=== PATIENT | male | born 1960 | race Caucasian/White ===

== ENCOUNTER 2021-06-10 13:10 | Inpatient (IN) | payer SELFPAY ==
[2021-06-10] VITALS (20 sets, daily range): BP systolic 116–169; BP diastolic 75–93; PULSE 76–118; RESP 16–28; TEMP 35.9–38; O2SAT 88–97; BMI 15.8
--- NOTE | ~2021-06-10 | XR_ITS ---
XR chest 1V portable 06/10/2021 13:36 Indication: Shortness of breath for 3 days. Procedure: AP portable chest Comparison: No prior studies for comparison. Findings: There is bibasilar airspace disease, left greater than right. There is emphysema. No pneumo thorax. Heart size normal. No significant effusion. Impression: 1: Bibasilar airspace disease, consistent with pneumonia. Reviewed, dictated and finalized at location A. Impression: 1: Bibasilar airspace disease, consistent with pneumonia.
--- NOTE | ~2021-06-10 | CT_ITS ---
EXAMINATION: CTA chest PE protocol DATE: 06/10/2021 15:27 INDICATION: Shortness of breath TECHNIQUE: Computed tomography angiography (CTA) of the chest was performed with 100 mL Omnipaque-350 intravenous contrast timed to evaluate the pulmonary arteries. Coronal maximum intensity projection 3D-reconstructions were created by the technologist. The dose-length product (DLP) was 168.60 mGy-cm. Automated exposure control and iterative reconstruction technique were employed. COMPARISON: None. FINDINGS: The pulmonary arteries are well-opacified. No pulmonary embolism is identified. There is s evere emphysema. There are patchy airspace opacities in the lower lobes, left greater than right and to a lesser extent in the upper lobes. There is no pleural effusion or pneumothorax. There is mild bi lateral hilar lymphadenopathy. There is mild thoracic spondylosis. IMPRESSION: 1. No pulmonary embolus identified. 2. Severe emphysema. 3. Patchy airspace opacities with a lower lobe predominance, likely multifocal pneumonia. 4. Mild hilar lymphadenopathy, likely reactive. Reviewed, dictated and finalized at location B.
--- NOTE | 2021-06-10 13:22 | ED.SOB ---
HPI - SOB/Dyspnea General Chief Complaint: Shortness of Breath/Dyspnea Stated Complaint: SOB/Cough/Fever Time Seen by Provider: 06/10/21 13:22 Source: patient History of Present Illness HPI Narrative: 60-year-old male, alcoholic and smoker who quit 3 weeks ago presents to the ER with a 3 day history of -- recurrent cough mucoid / mucopurulent sputum -- worsening shortness of breath -- low-grade fevers the patient took Mucinex without any benefit. MD elicited complaint: shortness of breath Pertinent past history: COPD Onset (ago): day(s) ( Started 3 days ago) Timing: constant Relieving factors: nothing Known history of: COPD Associated symptoms: fever, cough and sputum production Treatment prior to arrival: none Related Data Home oxygen amount: none Home Medications Medication Instructions Recorded Confirmed No Home Medications 06/10/21 06/10/21 Allergies Allergy/AdvReac Type Severity Reaction Status Date / Time No Known Allergies Allergy Verified 06/10/21 14:10 Review of Systems Review of Systems: All systems reviewed & are unremarkable except as noted in HPI and below Constitutional: Constitutional: Reports as per HPI, Reports no additional constitutional complaints and Reports fever(s) Eyes: Eyes: Reports as per HPI and Reports no additional eye complaints ENT: Reports system reviewed and no additional complaints, except as documented and Reports as per HPI Cardiovascular: Cardiovascular: Reports as per HPI and Reports no additional cardiovascular complaints Respiratory: Respiratory: Reports as per HPI, Reports no additional respiratory complaints, Reports cough and Reports dyspnea Gastrointestinal: Gastrointestinal: Reports as per HPI and Reports no additional gastrointestinal complaints Genitourinary: Genitourinary: Reports no additional male genitourinary complaints and Reports as per HPI Musculoskeletal: Musculoskeletal: Reports no additional musculoskeletal complaints and Reports as per HPI Integumentary/Breasts: Skin/Breast: Reports system reviewed and no additional complaints, except as docu Neurologic: Reports system reviewed and no additional complaints, except as documented and Reports as per HPI Psychiatric: Psychiatric: Reports no additional psychiatric complaints Endocrine: Endocrine: Reports no additional endocrine complaints and Reports as per HPI Hematologic/Lymphatic: Hematologic/Lymphatic: Reports no additional hematologic/lymphatic complaints and Reports as per HPI Allergic/Immunologic: Allergic/Immunologic: Reports no additional allergic/immunologic complaints and Reports as per HPI [facility] Past Medical History Medical History COPD (chronic obstructive pulmonary disease) Social History Social History (Updated 06/10/21 @ 13:35 by Bobby Greer MD) Smoking packs per day: 3 Smoking cigarettes per day: 60.0 Years smoked: 41 Smoking pack-years: 123.00 Smoking status: Former smoker Tobacco type: cigarettes Alcohol intake: former Drinks per week: 28 Alcohol use details: 4 beers a day. quit 3 weeks ago Substance use: never Exam Const: General: no acute distress and alert Orientation/consciousness: patient oriented x3 Limitations: altered mental status HENMT: Head: normal to inspection Eyes: Conjunctivae: conjunctivae normal Pupils: Equal, round and reactive pupils present EOM: EOMs intact bilaterally Neck: Neck: normal visual inspection, no lymphadenopathy and no meningeal signs Chest: Chest palpation & inspection: normal inspection of the chest Resp: Effort & Inspection: labored and uses accessory muscles Auscultation: wheezes and diminished lung sounds Cardio: Rate: regular rate Rhythm: regular rhythm GI: GI Palp: Yes Soft to palpation : Testes: Testes normal Back/Spine/Pelvis: Back: no CVA tenderness Skin: General skin exam: normal color Rashes: no rashes Neuro:
--- NOTE | 2021-06-10 13:27 | ECG_ITS ---
Measurements Intervals Cullen Rate: 116 P: 100 KS: 120 QRS: 95 QRSD: 85 T: 94 QT: 296 QTc: 412 Interpretive Statements SINUS TACHYCARDIA RIGHT ATRIAL ENLARGEMENT [0.3mV P-WAVE] POSSIBLE LEFT ATRIAL ENLARGEMENT [-0.1mV P-WAVE IN V1/V2] BORDERLINE RIGHT AXIS DEVIATION [QRS AXIS > 90] POSSIBLE ANTERIOR INFARCTION, AGE INDETERMINATE ABNORMAL ECG NO PREVIOUS ECG AVAILABLE FOR COMPARISON Electronically Signed On 06-10-2021 13:50:49 CDT by Maximilian Sepulveda M.D.
[2021-06-10] MEDS: IPRATROPIUM 0.5 MG/ALBUTEROL SULFATE 2.5 MG AMPUL.NEB 3 ML INHALATION ×3 (13:37→23:33)
[2021-06-10 13:42] LABS: Base Excess ABG 1.2 mmol/L (0-2); Device ROOM AIR; HCO3 ABG 23.6 mmol/L (23-29); Modified Allen's Test Pass; Oxygen Content ABG 19.6 %vol (16.0-22.0); Oxygen Saturation ABG 87.2 % (95-97); Oxyhemoglobin 83.9 % (94-100); PO2 ABG 48.5 mmHg (80-90); Site Drawn RIGHT RADIAL; Total Hemoglobin 16.7 g/dL (12.0-18.0); pH ABG 7.49 (7.35-7.45)
[2021-06-10 14:02] LABS: Basophils Absolute Auto 0.04 K/mm3 (0.00-0.10); Basophils Percent Auto 0.4 % (0.0-1.0); Eosinophils Percent Auto 1.9 % (1.0-6.0); Hematocrit 47.9 % (40.0-54.0); Hemoglobin 16.1 g/dL (14.0-18.0); Immature Granulocyte Absolute 0.04 K/mm3 (0.00-0.00); Immature Granulocyte Percent A 0.4 % (0.0-0.0); Immature Platelet Fraction Pct 3.3 % (1.0-7.0); Lymphocytes Absolute Auto 1.99 K/mm3 (1.10-4.50); Lymphocytes Percent Auto 18.9 % (18.0-42.0); Mean Corpuscular HGB Conc 33.6 g/dL (32.0-36.0); Mean Corpuscular Hemoglobin 31.1 pg (27.0-31.0); Mean Corpuscular Volume 92.5 fL (78.0-102.0); Mean Platelet Volume 11.1 fl (8.7-11.0); Monocytes Percent Auto 9.5 % (2.0-11.0); Neutrophils Absolute Auto 7.2 K/mm3 (1.7-7.2); Neutrophils Percent Auto 68.9 % (50.0-70.0); Platelet Count Result 112 K/mm3 (150-420); Red Blood Count 5.18 M/mm3 (4.70-6.10); Red Cell Distribution Width 13.8 % (11.6-14.4); White Blood Count 10.5 K/mm3 (4.8-10.8)
[2021-06-10] MEDS: methylPREDNISolone SOD SUCC 125 MG VIAL IV PUSH (14:10)
[2021-06-10 14:11] LABS: Partial Thromboplastin Time 33.9 SEC (23.90-30.70)
--- NOTE | 2021-06-10 14:11 | PC.NURSE ---
Ddimer 0.83, reported to Dr Greer
[2021-06-10 14:12] LABS: D Dimer 0.83 mg/L (0.19-0.50)
[2021-06-10 14:16] LABS: SARS-CoV-2 Ag Negative (Negative)
[2021-06-10 14:17] LABS: Lactic Acid Reflex 1.4 mmol/L (0.4-2.0)
[2021-06-10 14:18] LABS: Influenza Control Valid (Valid)
[2021-06-10 14:20] LABS: Troponin I 10.3 ng/L (0.00-60.4)
[2021-06-10 14:20] LABS: Alanine Aminotransferase 16 U/L (16-63); Albumin Level 3.2 g/dL (3.4-5.0); Alkaline Phosphatase 62 U/L (46-116); Anion Gap 10 mmol/L (8-16); Aspartate Amino Transferase 20 U/L (15-37); Bilirubin,Total 0.7 mg/dL (0.00-1.00); Blood Urea Nitrogen 8 mg/dL (7-18); Calcium 8.8 mg/dL (8.5-10.1); Carbon Dioxide 25 mmol/L (21-32); Chloride 91 mmol/L (98-108); Estimated CRCL calculation 66 ml/min; Estimated Glomerular Filt Rate > 60; Glucose 110 mg/dL (70-99); NT Pro B Type Natriuretic Pept 381 pg/mL (0-125); Osmolality Calculated 261 mOsm/kg (285-295); Potassium 3.7 mmol/L (3.5-5.1); Sodium 126 mmol/L (136-145); Total Protein 9.4 g/dL (6.4-8.2)
[2021-06-10] MEDS: SODIUM CHLORIDE 0.9% IV 500 ML IV CONT (15:32)
--- NOTE | 2021-06-10 17:49 | ADMGEN ---
This patient, Marin Singletary, was admitted to 2nd Floor Room 205-2. Patient/family oriented to hospital policies and general routines including ID bracelet, bed and alarms, visiting hours, pain management, procedures, bathroom and other care routines, personal items, smoking policy, room service/diet, and visiting hours. Information on how to activate the Rapid Response Team has been discussed. Patient/Family are encouraged to report perceived risks to care and to ask questions if they do not understand what they are told or what they should do.
[2021-06-10] MEDS: ACETAMINOPHEN 325 MG TABLET 650 MG PO (18:23)
[2021-06-10] MEDS: methylPREDNISolone SOD SUCC 40 MG VIAL IV PUSH (22:05)
[2021-06-11] VITALS (7 sets, daily range): BP systolic 112; BP diastolic 74; PULSE 71–84; RESP 16–22; TEMP 36.2; O2SAT 90–100
[2021-06-11 05:00] LABS: Basophils Absolute Auto 0.02 K/mm3 (0.00-0.10); Basophils Percent Auto 0.4 % (0.0-1.0); Hematocrit 47.6 % (40.0-54.0); Hemoglobin 15.4 g/dL (14.0-18.0); Immature Granulocyte Absolute 0.03 K/mm3 (0.00-0.00); Immature Granulocyte Percent A 0.7 % (0.0-0.0); Lymphocytes Absolute Auto 1.02 K/mm3 (1.10-4.50); Lymphocytes Percent Auto 22.2 % (18.0-42.0); Mean Corpuscular HGB Conc 32.4 g/dL (32.0-36.0); Mean Corpuscular Hemoglobin 30.6 pg (27.0-31.0); Mean Corpuscular Volume 94.4 fL (78.0-102.0); Mean Platelet Volume 11.2 fl (8.7-11.0); Monocytes Absolute Auto 0.21 K/mm3 (0.10-0.90); Monocytes Percent Auto 4.6 % (2.0-11.0); Neutrophils Absolute Auto 3.3 K/mm3 (1.7-7.2); Neutrophils Percent Auto 72.1 % (50.0-70.0); Platelet Count Result 101 K/mm3 (150-420); Red Blood Count 5.04 M/mm3 (4.70-6.10); Red Cell Distribution Width 13.9 % (11.6-14.4); White Blood Count 4.6 K/mm3 (4.8-10.8)
[2021-06-11] MEDS: methylPREDNISolone SOD SUCC 40 MG VIAL IV PUSH ×2 (05:02→12:22)
[2021-06-11 05:08] LABS: Anion Gap 7 mmol/L (8-16); Blood Urea Nitrogen 13 mg/dL (7-18); Calcium 8.9 mg/dL (8.5-10.1); Carbon Dioxide 28 mmol/L (21-32); Chloride 97 mmol/L (98-108); Estimated CRCL calculation 53 ml/min; Estimated Glomerular Filt Rate > 60; Glucose 155 mg/dL (70-99); Osmolality Calculated 277 mOsm/kg (285-295); Potassium 4.2 mmol/L (3.5-5.1); Sodium 132 mmol/L (136-145)
[2021-06-11] MEDS: IPRATROPIUM 0.5 MG/ALBUTEROL SULFATE 2.5 MG AMPUL.NEB 3 ML INHALATION ×2 (05:29→12:30)
[2021-06-11] MEDS: ENOXAPARIN 40 MG/0.4 ML SYRINGE SUB-Q (08:46)
--- NOTE | 2021-06-11 12:07 | PC.NURSE ---
oxygen removed at this time
--- NOTE | 2021-06-11 12:28 | PM.SD2 ---
Same Day Admit/Disch: HPI History of Present Illness Chief complaint: COPD PNEUMONIA Narrative: Marin Singletary is a 60 year old male that presented to our emergency department with complaints of shortness of breath. Patient denies any past medical history. Patient imaging does indicate COPD and he is a smoker. According to patient he has been short of breath at rest and on exertion since Tuesday with no relief. Patient notes that he does have a chronic cough but it has been uncontrollable and he has also been experiencing a fever. 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 WBCs 10.5, hemoglobin 16.1, hematocrit 47.9, platelets 112, D-dimer 0.83, ABG pH 7.49, CO2 32, O2 48.5, bicarb 23.6 sodium 126, potassium 3.7, BUN 8, creatinine 0.98, glucose 110, lactic acid 1.4, liver function test within normal limit, troponin 10.3, influenza and Covid negative, CTA does not indicate PE does indicate severe emphysema with pneumonia, EKG sinus tach with a heart rate of 116 .patient patient notes that he is ready for discharge, his breathing has greatly improved. He was discharged home with antibiotics for pneumonia and treatment of COPD which is inhalers with nebulizers and steroid use. The patient denies CP, palpitation, extremity numbness, lightheadedness, dizziness, constipation, diarrhea, chills, or fever. Patient get insurance he will need to complete a home O2 evaluation. [facility] Past Medical History Medical History COPD (chronic obstructive pulmonary disease) Family History Family History (Updated 06/10/21 @ 18:03 by Kinza Stafford RN) Father Lung cancer Sibling Lung cancer Social History Social History (Updated 06/10/21 @ 13:35 by Bobby Greer MD) Smoking packs per day: 3 Smoking cigarettes per day: 60.0 Years smoked: 40 Smoking pack-years: 120.00 Smoking status: Former smoker Tobacco type: cigarettes Additional smoking assessment comments: Quit x3 weeks ago 05/20/2021 Alcohol intake: never Drinks per week: 28 Alcohol use details: 4 beers a day. quit 3 weeks ago Substance use: never Spiritual care concerns: No Same Day Admit/Disch: Med Pre-admit Medications Home Medications Medication Instructions Recorded Confirmed Type No Home Medications 06/10/21 06/10/21 History nebulizers #1 ea 06/11/21 Rx Exam Narrative: GENERAL: Frail, in no apparent distress. HEAD: normocephalic, atraumatic. EYES: PERRL. Sclera clear/white. Vision is grossly intact. EARS: External ears normal, auditory canals clear and without drainage, TMs normal without perforation. Hearing grossly intact. NOSE: External nose normal with no obvious nasal discharge, nares without redness, no rhinorrhea. THROAT: Mucous membranes moist, posterior pharynx clear. NECK: Neck supple, non-tender without lymphadenopathy, masses or thyromegaly. CARDIOVASCULAR: Regular rate and rhythm without murmurs, gallops, or rubs. RESPIRATORY: Diminished breath sounds throughout, use of accessory muscles especially while eating with barrel chest GASTROINTESTINAL: Abdomen soft, non-tender, nondistended. Bowel sounds are active. No hepato-splenomegaly, or palpable masses. No guarding. SKIN: warm, intact with no suspicious lesions or rash, good texture and turgor. NEURO: awake, alert, and oriented to person, place and time. There were no obvious focal neurologic abnormalities. Steady gait EXTREMITIES: Normal range of motion. No edema. No calf tenderness. Negative Homans sign bilaterally. BACK: Nontender without deformity or crepitance. No flank tenderness. DS: Data Data Completed and Pending Labs on day of discharge: Labs from last 24 hours 06/11/21 06/11/21 06/10/21 04:47 04:47 13:57 WBC 4.6 L RBC 5.04 Hgb 15.4 Hct 47.6 MCV 94.4 MCH 30.6 MCHC 32.4 RDW 13.9 Plt Co
[2021-06-11] MEDS: ALBUTEROL SULFATE (*SP) INHALER 2 PUFF INHALATION (12:55)
[2021-06-11] MEDS: BUDESONIDE/FORMOTEROL 80/4.5 MCG 6.9 GM INHALER (*SP) 2 PUFF INHALATION (13:18)
--- NOTE | 2021-06-11 15:50 | PC.NURSE ---
1540. all dc orders went over. how to use nebs. prednisone tapering. inhaler use. making f/u appointments. cont to not smoke. voices an understanding. dc to nephew's car.
--- NOTE | 2021-06-16 10:27 | PC.NURSE ---
Unable to contact for discharge call back.
== END 2021-06-11 15:40 | disposition home or self-care (01) | DRG 140 ==
LOC: CHSED 16:15 → CHS2ND 17:03
PROVIDERS: Admitting Provider Internal Medicine; Emergency Provider Internal Medicine Critical Care Medicine; PCP Family Medicine; Visit Provider Internal Medicine
DX: J44.0 Chronic obstructive pulmonary disease with (acute) lower respiratory infection (principal); J18.9 Pneumonia, unspecified organism; J96.01 Acute respiratory failure with hypoxia; E87.1 Hypo-osmolality and hyponatremia; R79.1 Abnormal coagulation profile; Z20.822 Contact with and (suspected) exposure to COVID-19; Z87.891 Personal history of nicotine dependence
CPT/HCPCS: 36415; 36600; 71045; 71275; 80048; 80053; 82805; 83605; 83880; 84484; 85025; 85055; 85380; 85610; 85730; 87040; 87426; 87804; 93005; 94640; 96361; 96365; 96367; 96375; 99285; A9270; C9803; J0456; J0696; J1650; J2920; J2930; J7040; Q9967

== ENCOUNTER 2021-08-04 15:34 | Emergency (ER) | payer OTHER, SELFPAY ==
--- NOTE | ~2021-08-04 | CT_ITS ---
EXAMINATION: CT abdomen pelvis w con DATE: 08/04/2021 16:55 INDICATION: RLQ pain today TECHNIQUE: Computed tomography (CT) of the abdomen and pelvis was performed with 100 mL Omnipaque-300 intravenous contrast. Automated exposure control and iterative reconstruction technique were employe d. The dose-length product was 178.31 mGy-cm. COMPARISON: CTPA 06/10/2021 FINDINGS: Lower thorax: Emphysematous changes. Moderate coronary artery calcification. Liver: Scattered hypodensities, too small to characterize but most likely represent cysts. Biliary/Gallbladder: Gallbladder is collapsed. No bile duct dilation. Pancreas: No mass or duct dilation. Spleen: Normal. Adrenals:No mass. Kidneys: No mass, stone, or hydronephrosis. GI tract: No small or large bowel dilation. The appendix is dilated to 8 mm, with wall hyperemia and surrounding inflammation/fluid. Transverse colon dips low into the pelvis with a portion herniated in to the left inguinal canal. Rectal wall thickening, with suggestion of shouldering at the proximal ma rgin. Mesentery/Peritoneum: No ascites, mass, or free air. Retroperitoneum: No mass. Abdominal atherosclerosis. Pelvis: Marked bladder distention likely due to outlet obstruction from prostatomegaly. Soft Tissues: Large, inflammatory/edematous left internal hernia containing a nondilated loop of briseno sverse colon. Bones: No acute osseous finding. IMPRESSION: Acute appendicitis. Evaluation for early abscess formation or perforation is limited by the paucity o f abdominal fat. Rectal wall thickening, recommend nonemergent GI referral to evaluate for proctitis and exclude a mass. Large left inguinal hernia that contains nondilated large bowel. Reviewed, dictated and finalized at location K. IMPRESSION: Acute appendicitis. Evaluation for early abscess formation or perforation is li mited by the paucity of abdominal fat. Rectal wall thickening, recommend noneme rgent GI referral to evaluate for proctitis and exclude a mass. Large left ingu inal hernia that contains nondilated large bowel.
[2021-08-04 15:45] VITALS: BP 178/95; PULSE 85; RESP 18; TEMP 36.8; O2SAT 95
--- NOTE | 2021-08-04 15:51 | ED.ABDPAIN ---
HPI - Abdominal Pain General Chief Complaint: Abdominal Pain Stated Complaint: L side pain Time Seen by Provider: 08/04/21 15:55 Source: patient and RN notes reviewed Mode of arrival: ambulatory Limitations: no limitations History of Present Illness MD elicited complaint: abdominal pain Pertinent past history: none Onset (ago): hour(s) (6) Pain Consistency: constant Location: RLQ Severity: severe Quality: stabbing and sharp Radiation: none Migration to: no migration Exacerbating factors: nothing Relieving factors: nothing Associated symptoms: denies other symptoms Related Data Allergies Allergy/AdvReac Type Severity Reaction Status Date / Time No Known Allergies Allergy Verified 08/04/21 15:51 Review of Systems Review of Systems: All systems reviewed & are unremarkable except as noted in HPI and below Constitutional: Constitutional: Denies chills and Denies fever(s) Cardiovascular: Cardiovascular: Denies chest pain Respiratory: Respiratory: Denies dyspnea Gastrointestinal: Gastrointestinal: Denies diarrhea, Denies nausea and Denies vomiting Genitourinary: Genitourinary: Denies dysuria PMFSH Past Medical History Medical History COPD (chronic obstructive pulmonary disease) Family History Family History Father Lung cancer Sibling Lung cancer Social History Social History Years smoked: 40 Smoking status: Current every day smoker Tobacco type: cigarettes Second hand tobacco smoke exposure: No Additional smoking assessment comments: smokes 2 cigs per week Alcohol intake: current Drinks per week: 2 Alcohol use details: 4 beers a day. quit 3 weeks ago Substance use: never Spiritual care concerns: No Exam Const: General: healthy appearing, no acute distress and alert Nutritional Appearance: well nourished and thin Orientation/consciousness: patient oriented x3 HENMT: Head: normal to inspection Ears: external ears normal Eyes: Conjunctivae: conjunctivae normal Pupils: Equal, round and reactive pupils present EOM: EOMs intact bilaterally Neck: Neck: normal visual inspection Resp: Effort & Inspection: normal respiratory effort Auscultation: clear to auscultation bilaterally Cardio: Rate: regular rate Rhythm: regular rhythm GI: GI Palp: Yes Soft to palpation, Yes Tenderness to palpation present (GI) (moderate RLQ), Yes Guarding due to palpation present (GI) (moderate RLQ) and No Rebound tenderness present Auscultation: normal bowel sounds Back/Spine/Pelvis: Back: no CVA tenderness Cervical Spine: cervical ROM normal Thoracic/Lumbar Spine: thoraco-lumbar ROM normal Skin: General skin exam: normal color Rashes: no rashes Neuro: General: patient oriented x3, moves all extremities, no meningeal signs, no focal motor deficits and CN's II-XI intact bilaterally Speech: normal speech Gait exam (Neuro): Normal gait present Extrem: General: normal to inspection and no clubbing, cyanosis or edema Psych: Appearance: grossly normal and well kempt Mental Status: mental status grossly normal Affect: normal affect Attitude: cooperative Thought content: Yes Normal thought content present Course Vital Signs Vital signs: Vital Signs Temperature 36.8 C 08/04/21 15:45 Pulse Rate 85 08/04/21 15:45 Respiratory Rate 18 08/04/21 15:45 Blood Pressure 178/95 H 08/04/21 15:45 Pulse Oximetry 95 08/04/21 15:45 Temperature 36.8 C 08/04/21 18:28 Pulse Rate 82 08/04/21 18:28 Respiratory Rate 18 08/04/21 18:28 Blood Pressure 155/84 H 08/04/21 18:28 Pulse Oximetry 97 08/04/21 18:28 MDM - Abdominal Pain Lab Data Result diagrams: 08/04/21 16:07 08/04/21 16:07 Labs: Lab Results 08/04/21 08/04/21 08/04/21 Range/Units 16:07 16:07 16:07 WBC 9.3 (4.8-10.8) K
[2021-08-04 16:14] LABS: Basophils Absolute Auto 0.05 K/mm3 (0.00-0.10); Basophils Percent Auto 0.5 % (0.0-1.0); Eosinophils Absolute Auto 0.08 K/mm3 (0.02-0.50); Eosinophils Percent Auto 0.9 % (1.0-6.0); Immature Granulocyte Absolute 0.02 K/mm3 (0.00-0.00); Immature Granulocyte Percent A 0.2 % (0.0-0.0); Lymphocytes Absolute Auto 2.25 K/mm3 (1.10-4.50); Lymphocytes Percent Auto 24.3 % (18.0-42.0); Mean Corpuscular HGB Conc 34.1 g/dL (32.0-36.0); Mean Corpuscular Hemoglobin 31.3 pg (27.0-31.0); Mean Corpuscular Volume 91.9 fL (78.0-102.0); Mean Platelet Volume 10.6 fl (8.7-11.0); Monocytes Absolute Auto 0.74 K/mm3 (0.10-0.90); Neutrophils Absolute Auto 6.1 K/mm3 (1.7-7.2); Neutrophils Percent Auto 66.1 % (50.0-70.0); Platelet Count Result 155 K/mm3 (150-420); Red Blood Count 4.79 M/mm3 (4.70-6.10); Red Cell Distribution Width 14.7 % (11.6-14.4); White Blood Count 9.3 K/mm3 (4.8-10.8)
[2021-08-04 16:26] LABS: Alanine Aminotransferase 18 U/L (16-63); Albumin Level 3.4 g/dL (3.4-5.0); Alkaline Phosphatase 100 U/L (46-116); Aspartate Amino Transferase 24 U/L (15-37); Bilirubin,Total 0.3 mg/dL (0.00-1.00); Blood Urea Nitrogen 8 mg/dL (7-18); Carbon Dioxide 25 mmol/L (21-32); Estimated CRCL calculation 63 ml/min; Estimated Glomerular Filt Rate > 60; Glucose 97 mg/dL (70-99); Total Protein 7.2 g/dL (6.4-8.2)
[2021-08-04 16:31] LABS: Lactic Acid Reflex 0.5 mmol/L (0.4-2.0)
[2021-08-04 16:40] LABS: CRP 0.6 mg/dL (0.0-0.9)
[2021-08-04 16:57] LABS: Anion Gap 9 mmol/L (8-16); Chloride 99 mmol/L (98-108); Osmolality Calculated 274 mOsm/kg (285-295); Potassium 3.5 mmol/L (3.5-5.1); Sodium 133 mmol/L (136-145)
[2021-08-04 17:00] VITALS: BP 161/70; PULSE 79; RESP 16; TEMP 36.9; O2SAT 97
[2021-08-04 18:28] VITALS: BP 155/84; PULSE 82; RESP 18; TEMP 36.8; O2SAT 97
== END 2021-08-04 18:55 | disposition short-term general hospital (02) ==
PROVIDERS: Emergency Provider Emergency Medicine; PCP Physician Assistant
DX: K35.80 Unspecified acute appendicitis (principal)
CPT/HCPCS: 74177; 80053; 83605; 85025; 86140; 96365; 99285; J2543; Q9967

== ENCOUNTER 2021-08-04 22:30 | Observation (INO) | payer OTHER, SELFPAY ==
[2021-08-04 21:56] VITALS: BP 128/82; PULSE 85; RESP 16; TEMP 36.9; O2SAT 95
[2021-08-04] MEDS: MORPHINE SULFATE (*CRX) 4 MG/ML INJ IV PUSH (23:31)
[2021-08-04] MEDS: LACTATED RINGERS 1,000 ML 150 ML IV CONT (23:32)
[2021-08-05] VITALS (10 sets, daily range): BP systolic 107–170; BP diastolic 71–106; PULSE 66–86; RESP 10–20; TEMP 36.2–36.8; O2SAT 92–100; BMI 16.5
--- NOTE | 2021-08-05 01:08 | ADMGEN ---
1926 This patient, Marin Singletary, was admitted to [facility] Surg Room 329-01. Patient/family oriented to hospital policies and general routines including ID bracelet, bed and alarms, visiting hours, pain management, procedures, bathroom and other care routines, personal items, smoking policy, room service/diet, and visiting hours. Information on how to activate the Rapid Response Team has been discussed. Patient/Family are encouraged to report perceived risks to care and to ask questions if they do not understand what they are told or what they should do.
[2021-08-05] MEDS: LACTATED RINGERS 1,000 ML 150 ML IV CONT (05:43)
[2021-08-05 06:33] LABS: Hematocrit 45.2 % (42.0-52.0); Hemoglobin 14.5 g/dL (14.0-18.0); Mean Corpuscular HGB Conc 32.1 g/dl (32-36); Mean Corpuscular Volume 93.4 fl (80-100); Mean Platelet Volume 10.7 fl (7.4-10.4); Platelet Count Result 145 k/mm3 (150-375); Red Blood Count 4.84 M/mm3 (4.6-6.20); Red Cell Distribution Width 15.6 % (11.5-14.5); White Blood Count 5.1 K/mm3 (4.5-10.0)
[2021-08-05 06:53] LABS: Anion Gap 6 mmol/L (8-16); Blood Urea Nitrogen 6 mg/dL (9-20); Calcium 7.9 mg/dL (8.4-10.2); Carbon Dioxide 25 mmol/L (22-30); Chloride 105 mmol/L (98-107); Estimated Glomerular Filt Rate > 60; Glucose 83 mg/dL (65-110); Potassium 3.6 mmol/L (3.4-5.0); Sodium 136 mmol/L (137-145)
--- NOTE | 2021-08-05 10:28 | WPDANESEPPF ---
Anes - Initial Pre Proc Eval Procedure: Operation Date: 08/05/21 13:30 Proposed Procedures p Laparoscopic Appendectomy, Possible Open - Tyree Long DO <Jorden Suárez MD - Last Filed: 08/08/21 07:55> Date/Time: 08/05/21 10:28 <Jorden Suárez MD - Last Filed: 08/08/21 07:55> Surgeon: Tyree Long DO <Jorden Suárez MD - Last Filed: 08/08/21 07:55> Pre Op Diagnosis: Acute Appendicitis <Jorden Suárez MD - Last Filed: 08/08/21 07:55> Patient Data Age: 60 Gender: M Height: 1.7 m Weight: 47.7 kg <Jorden Suárez MD - Last Filed: 08/08/21 07:55> Last Vital Signs Temp 36.5 C 08/05/21 06:00 Pulse 66 08/05/21 06:00 Resp 16 08/05/21 06:00 BP 111/71 08/05/21 06:00 Pulse Ox 94 08/05/21 06:00 <Jorden Suárez MD - Last Filed: 08/08/21 07:55> Allergies Allergy/AdvReac Type Severity Reaction Status Date / Time No Known Allergies Allergy Verified 08/04/21 15:51 <Jorden Suárez MD - Last Filed: 08/08/21 07:55> Home Medications Medication Instructions Recorded Confirmed Type Spiriva with HandiHaler 1 cap INHALATION DAILY 90 Days #30 06/11/21 08/05/21 Rx inh albuterol sulfate [ProAir HFA] 2 puff INHALATION QID PRN #6.7 g 06/11/21 08/05/21 Rx ipratropium-albuterol 3 ml INHALATION Q4H PRN #30 ml 06/11/21 08/05/21 Rx nebulizers #1 ea 06/11/21 08/04/21 Rx nebulizers #1 ea 06/12/21 08/04/21 Rx hydrocodone-acetaminophen 1 tablet PO Q4H PRN #10 tablet 08/05/21 Rx <Jorden Suárez MD - Last Filed: 08/08/21 07:55> Laboratory Tests 08/05/21 08/05/21 08/05/21 06:06 06:06 06:06 WBC 5.1 K/mm3 K/mm3 (4.5-10.0) RBC 4.84 M/mm3 M/mm3 (4.6-6.20) Hgb 14.5 g/dL g/dL (14.0-18.0) Hct 45.2 % % (42.0-52.0) MCV 93.4 fl fl (80-100) MCH 30.0 pg pg (26-34) MCHC 32.1 g/dl g/dl (32-36) RDW 15.6 % H % (11.5-14.5) Plt Count 145 k/mm3 L k/mm3 (150-375) MPV 10.7 fl H fl (7.4-10.4) Sodium 136 mmol/L L mmol/L (137-145) Potassium 3.6 mmol/L mmol/L (3.4-5.0) Chloride 105 mmol/L mmol/L (98-107) Carbon Dioxide 25 mmol/L mmol/L (22-30) Anion Gap 6 mmol/L L mmol/L (8-16) BUN 6 mg/dL L mg/dL (9-20) Creatinine 0.70 mg/dL mg/dL (0.7-1.3) Estim Creat Clear Calc Not Reportable Estimated GFR > 60 (59 - ) Glucose 83 mg/dL mg/dL (65-110) Calcium 7.9 mg/dL L mg/dL (8.4-10.2) Blood Type B Negative Antibody Screen Negative <Jorden Suárez MD - Last Filed: 08/08/21 07:55> Patient hx anesthesia problems: none <Denver Rodriguez MD - Last Filed: 08/05/21 13:11> Family hx anesthesia problems: none <Denver Rodriguez MD - Last Filed: 08/05/21 13:11> Results Review: All pre-operative results and documents have been reviewed as part of the pre-operative evaluation. <Jorden Suárez MD - Last Filed: 08/08/21 07:55> [facility] Past Medical History Medical History: Medical History COPD (chronic obstructive pulmonary disease) ETOH abuse History of heavy alcohol use. Quit drinking in May of 2021 Reducible left inguinal hernia Smoker <Jorden Suárez MD - Last Filed: 08/08/21 07:55> Surgical History Surgical History: Surgical History History of shoulder surgery 2005 <Jorden Suárez MD - Last Filed: 08/08/21 07:55> Family History Family History: Family History Father Lung cancer Sibling Lung cancer <Jorden Suárez MD - Last Filed: 08/08/21 07:55> Social History Social History: Social History Smoking packs per day: 3 Smoking cigarettes per day: 6
--- NOTE | 2021-08-05 10:46 | PM.IMHP ---
H&P: HPI History of Present Illness Date/Time: 08/05/21 10:46 Chief Complaint: Right lower quadrant abdominal pain Narrative: This is a 60-year-old male with a history of COPD who presented to the [place] ER with complaints of right lower quadrant abdominal pain. He reports first noticing some mild right lower quadrant abdominal pain yesterday around 10:00 a.m.. Throughout the day the pain continued to worsen in severity. No radiating factors or associated symptoms. He reports the pain was aggravated by bending and any movement. Once the pain became severe enough, he decided to drive himself to the ER in [place]. CT scan of the abdomen and pelvis showed acute appendicitis but difficult to evaluate for early abscess or perforation due to the paucity of abdominal fat making the images limited. Also, incidentally noted was rectal wall thickening and a large left inguinal hernia containing nondilated colon. Labs showed a normal white blood cell count. Our service was contacted by the ED physician and the patient was directly admitted to [facility] for surgical evaluation of acute appendicitis. He is now seen on the medical floor. He reports his abdominal pain is controlled when lying still. Denies any nausea, vomiting, fever, or chills. No other complaints at this time. No previous abdominal surgeries. Patient was previously a heavy smoker of about 3 packs per day and quit in May of this year. He reports now only smoking a few cigarettes on occasion. The patient also reports knowing of his left inguinal hernia for well over 10 years. He states this is painful at times, but this resolves when he reduces it at home. This is asymptomatic at this time. Review of Systems Review of Systems: All systems reviewed & are unremarkable except as noted in HPI and below Constitutional: Constitutional: Reports as per HPI, Denies chills, Denies fatigue and Denies fever(s) Eyes: Eyes: Reports no additional eye complaints ENT: Reports system reviewed and no additional complaints, except as documented and Reports Normal hearing present Cardiovascular: Cardiovascular: Reports no additional cardiovascular complaints, Denies chest pain and Denies leg edema Respiratory: Respiratory: Reports no additional respiratory complaints, Denies change in phlegm color, Reports cough (chronic cough, hx COPD, no changes in his cough), Reports dyspnea on exertion (chronic, reports this is typical to his baseline) and Denies wheezing Gastrointestinal: Gastrointestinal: Reports as per HPI, Reports no additional gastrointestinal complaints, Reports abdominal pain (RLQ), Denies bloating, Denies change in bowel habits, Denies change in stool character, Denies diarrhea, Denies nausea and Denies vomiting Comments: Left inguinal hernia that he has had for well over 10 years, reducible. Genitourinary: Genitourinary: Reports no additional male genitourinary complaints, Denies hematuria and Denies dysuria Musculoskeletal: Musculoskeletal: Reports no additional musculoskeletal complaints Neurologic: Reports system reviewed and no additional complaints, except as documented, Denies dizziness, Denies focal weakness, Denies numbness and Denies tingling PMFSH Past Medical History Medical History COPD (chronic obstructive pulmonary disease) ETOH abuse History of heavy alcohol use. Quit drinking in May of 2021 Reducible left inguinal hernia Smoker Surgical History Surgical History History of shoulder surgery 2005 Family History Family History Father Lung cancer Sibling Lung cancer Social History Social History Smoking packs per day: 3 Smoking cigarettes per day: 60.0 Years smoked: 40 Smoking pack-years: 120.00 Smoking status: Current every day smoker Tobacco type: cigare
[2021-08-05] MEDS: LACTATED RINGERS 1,000 ML 30 ML IV CONT (12:55)
--- NOTE | 2021-08-05 12:58 | PM.IMPN ---
Progress Note: A&P Assessment and Plan (1) Acute appendicitis: Code(s): K35.80 - Unspecified acute appendicitis Status: Acute Assessment and Plan: Surgical intervention planned. Continue IV antibiotics Surgery following the patient as well to note, patient does have some rectal thickening on CT scan. This will need to be followed up as an outpatient. (2) COPD (chronic obstructive pulmonary disease): Qualifiers: COPD type: chronic bronchitis Chronic bronchitis type: simple Qualified Code(s): J41.0 - Simple chronic bronchitis Code(s): J44.9 - Chronic obstructive pulmonary disease, unspecified Status: Acute Assessment and Plan: History. No exacerbation Subjective Date/time seen: 08/05/21 12:58 patient is doing well today. Pain is better. Surgical intervention is planned Review of Systems Review of Systems: 10 point ROS negative except as stated in HPI / Subjective Exam Narrative: General: alert and oriented Psych: appropriate mood nad affect Eyes: PERRLA Neck: Trachea midline, no new lesions Skin: no changes Lungs: CTA Cardiac: Normal S1,S2, no MGR ABD: soft, nd, nt, nbs Ext: no new lesions, no cce Vasc: Pulses intact Objective Data Vital Signs Vital Signs: Vital Signs - 24 hr 08/04/21 21:56 08/05/21 06:00 Temperature 98.5 F 97.7 F Pulse Rate 85 66 Respiratory Rate 16 16 Blood Pressure 128/82 111/71 Pulse Oximetry 95 94 Intake/Output Intake/Output: Intake & Output 08/02/21 08/03/21 08/04/21 08/05/21 23:59 23:59 23:59 23:59 Intake Total 1500 Balance 1500 Meds/Results Medications: Active Medications Generic Name Dose Route Start Last Admin Trade Name Freq PRN Reason Stop Dose Admin Albuterol 2.5 mg 08/05/21 10:46 Albuterol Sulfate Neb 2.5 Mg/0.5 Ml Inh INHALATION Q4HRT PRN shortness of breath or wheezing Fentanyl Citrate 25 mcg 08/05/21 10:27 Fentanyl Citrate Inj (*Crx) 100 Mcg/2 Ml Vial IV PUSH Q2M PRN Pain Lactated Ringer's 1,000 mls @ 150 mls/hr 08/04/21 22:40 08/05/21 05:43 Lr - Lactated Ringers Iv IV CONT 150 mls/hr .Q6H40M ALLEN Administration Piperacillin/Tazobactam/Dextrose 3.375 gm in 50 mls @ 100 mls/hr 08/05/21 10:00 08/05/21 09:29 Zosyn 3.375 Gm/D5w 50ml Pm IVPB 100 mls/hr Q6H ALLEN Administration Lactated Ringer's 1,000 mls @ 30 mls/hr 08/05/21 10:30 Lr - Lactated Ringers Iv IV CONT .Q24H ALLEN Lactated Ringer's 1,000 mls @ 30 mls/hr 08/05/21 10:30 Lr - Lactated Ringers Iv IV CONT .Q24H ALLEN Ipratropium [place] 0.5 mg 08/05/21 10:58 Ipratropium Br 0.02% Inh Soln 0.5 Mg/2.5 Ml Vial INHALATION Q4HRT PRN shortness of breath or wheezin Morphine Sulfate 2 mg 08/04/21 22:38 Morphine Sulfate (*Crx) 2 Mg/Ml Inj IV PUSH Q2H PRN Pain Rated 4-6 Morphine Sulfate 4 mg 08/04/21 22:38 08/04/21 23:31 Morphine Sulfate (*Crx) 4 Mg/Ml Inj IV PUSH 4 mg Q2H PRN Administration Pain Rated 7-10 Ondansetron HCl 4 mg 08/04/21 22:38 Ondansetron Inj 4 Mg/2 Ml Vial IV PUSH Q4H PRN Nausea And Vomiting Ondansetron HCl 4 mg 08/05/21 10:27 Ondansetron Inj 4 Mg/2 Ml Vial IV PUSH ONCE PRN Nausea Oxycodone HCl 5 mg 08/05/21 10:27 Oxycodone Hcl (*Crx) 5 Mg Tab Ir PO ONCE PRN Pain Labs Labs: Laboratory Results - last 24 hr 08/05/21 08/05/21 08/05/21 06:06 06:06 06:06 WBC 5.1 RBC 4.84 Hgb 14.5 Hct 45.2 MCV 93.4 MCH 30.0 MCHC 32.1 RDW 15.6 H Plt Count 145 L MPV 10.7 H Sodium 136 L Potassium 3.6 Chloride 105 Carbon Dioxide 25 Anion Gap 6 L BUN 6 L Creatinine 0.70 Estim Creat Clear Calc Not Reportable Estimated GFR > 60 Glucose 83 Calcium 7.9 L Blood Type B Negative Antibody Screen Negative
--- NOTE | 2021-08-05 13:35 | WPDHPUPDATE1 ---
History and Physical Update Update Date/Time: 08/05/21 13:35 History and Physical has been reviewed, including an updated exam of the patient. There are NO changes in the patient's condition. Risks, benefits, and alternatives have been discussed and questions answered. Patient agrees to proceed with procedure.
--- NOTE | 2021-08-05 14:28 | W.PM.PROC2 ---
Procedure Note - Detailed Date of Procedure 08/05/21 Pre-op Diagnosis Acute Appendicitis Post-op Diagnosis Same Procedure Performed Laparoscopic appendectomy Surgeon Tyree Long, DO Anesthesia General and Local (0.5% bupivacaine with epinephrine) Indications This is a 60-year-old man who presented with right lower quadrant abdominal pain that started yesterday. He had gone to [facility] and workup there revealed evidence of acute appendicitis. He was then transferred to [facility] for further care. He was started on broad-spectrum IV antibiotics and the following morning decision was made to proceed with laparoscopic appendectomy, possible open. Findings Laparoscopic appendectomy was performed. The appendix appeared inflamed, but there was no evidence of perforation or abscess. The base of the appendix appeared healthy and viable. The patient was also noted to have a moderate-sized left inguinal hernia containing omentum and colon. This easily reduced once patient was placed in Trendelenburg and pneumoperitoneum was developed. The appendix was removed and sent to the lab for pathology. Description of Procedure Procedure as well as risks, benefits, and alternatives were explained to the patient. The patient agreed to proceed. Written consent was obtained and placed in chart prior to procedure. The patient was brought back to surgical suite. He was placed supine on operating table. Time-out was done to confirm the patient and procedure. The patient was then intubated by the Anesthesia Department. His abdomen was prepped and draped in sterile fashion using chlorhexidine prep. A 12 mm incision was made at the inferior portion of the umbilicus. Blunt dissection was carried out down to the linea alba. The linea alba was then incised using a 15 blade scalpel. Then bluntly entered into the peritoneal cavity. A 12 mm trocar was then inserted, and carbon dioxide insufflation was used to create a pneumoperitoneum. The camera was inserted and the abdomen was inspected. No immediate abnormalities were identified. The patient was then placed in slight Trendelenburg position and rotated to the left. A 5 mm incision was made in the suprapubic region in midline and a 5 mm trocar was inserted under direct visualization. A 5 mm incision was made in the left lower quadrant and a 5 mm trocar was inserted under direct visualization. The right lower quadrant was carefully inspected. The cecum was identified and then this was traced back to the appendix. The appendix was identified and grasped at the mesoappendix and lifted anteriorly. Careful blunt dissection was carried out at the base of the appendix through the mesoappendix using a [place] grasper. An Endo-ARIEL 45 mm blue load stapler was then advanced across the base of the appendix and clamped and fired. A white reload was then clamped across the mesoappendix and fired. This freed up our appendix completely. It was then placed in an EndoCatch bag and removed through the umbilical port. The staple lines were then inspected. There was some bleeding at the mesoappendix staple line, and this was controlled using a 5 mm Endoclip lead technical architect. Hemostasis appeared adequate and the staple lines appeared secure. The area was then irrigated with sterile saline. The pelvis was then carefully inspected and irrigated with sterile saline as well and the remainder of the abdomen was carefully inspected. The patient was then flattened out in bed. One final inspection was made around the abdominal cavity and no other abnormalities were seen. The ports were then removed under direct visualization. The camera was removed and the pneumoperitoneum was released. The fascia of the umbilical incision was reapproximated using an 0 Vicryl [id number] suture. 0.5% bupivacaine with epinephrine was infiltrated locally around each of the incisions. The skin of the incisions was then approximated using
[2021-08-05] MEDS: fentaNYL CITRATE INJ (*CRX) 100 MCG/2 ML VIAL 25 MCG IV PUSH ×3 (15:17→15:25)
[2021-08-05] MEDS: IPRATROPIUM BR 0.02% INH SOLN 0.5 MG/2.5 ML VIAL INHALATION (17:10)
[2021-08-05] MEDS: ALBUTEROL SULFATE NEB 2.5 MG/0.5 ML INH INHALATION (17:10)
--- NOTE | 2021-08-12 10:36 | PM.DS ---
DS: Admitting Diagnosis Discharge Date 08/05/21 Admitting Diagnosis acute appendicitis, left inguinal hernia, COPD, Tobacco use, Abnormal CT abdomen DS: Discharge Diagnosis Discharge Diagnosis (1) Acute appendicitis: Code(s): K35.80 - Unspecified acute appendicitis Status: Acute (2) Reducible left inguinal hernia: Code(s): K40.90 - Unilateral inguinal hernia, without obstruction or gangrene, not specified as recurrent Status: Acute (3) Abnormal CT of the abdomen: Code(s): R93.5 - Abnormal findings on diagnostic imaging of other abdominal regions, including retroperitoneum Status: Acute (4) Smoker: Code(s): F17.200 - Nicotine dependence, unspecified, uncomplicated Status: Acute (5) COPD (chronic obstructive pulmonary disease): Qualifiers: COPD type: chronic bronchitis Chronic bronchitis type: simple Qualified Code(s): J41.0 - Simple chronic bronchitis Code(s): J44.9 - Chronic obstructive pulmonary disease, unspecified Status: Acute DS: Summary Hospital Course Reason for hospitalization: Acute appendicitis Hospital Course: This is a 60-year-old man who presented to [facility] 08/04/2021 with complaints of right lower quadrant abdominal pain. CT showed evidence of acute appendicitis and he was transferred to [facility] for further treatment. CT also showed evidence of a large left inguinal hernia containing nonobstructed bowel and some rectal wall thickening. He was started on broad-spectrum IV antibiotics and was taken for laparoscopic appendectomy on 08/05/2021. Surgery was uncomplicated and he was returned to the surgical floor postoperatively. His diet and activity were advanced as tolerated. He was tolerating a regular diet and was ambulating without much difficulty. Surgical findings showed evidence of appendicitis but no evidence of perforation. Once he was tolerating his diet and remaining hemodynamically stable several hours after the surgery, decision was made to discharge him home. Time spent discussing smoking cessation with patient: 3 to 10 minutes Status at Discharge Functional status at discharge: independent ambulation Overall status at discharge: patient is progressing back to baseline Time Spent with Patient Time attestation: Total time spent providing and/or coordinating discharge services: Time spent: Less than 30 minutes Exam Narrative: Unchanged from preoperative about DS: Data Data Completed and Pending Completed studies during hospitalization: Pending at discharge 08/05/21 14:06 Surgical [PTH] Routine Discharge Plan Discharge Attending physician on discharge: Tyree Pearson Consulting providers: Nimisha Engel ; Neena Roy ; Keyon Rondon Discharging Clinician: Tyree Pearson Patient Disposition: Home, Self-Care Activity: other - see discharge instructions Diet: other - see discharge instructions Wound Care Instructions: other - see discharge instructions Discharge Instructions: DISCHARGE INSTRUCTION SHEET FOR HERNIA, GALLBLADDER AND APPENDIX SURGERIES DR. PEARSON PATIENT TO TAKE HOME 1. May shower in 24 hours, no soaking in bath x 2weeks. 2. Call office for: Wound increasingly painful or bleeding Vomiting Fever of greater than 101 degrees 3. If no bowel movement for three days, take 1 oz. (30 ml) Milk of Magnesia or MiraLax 17g 1 to 2 times daily. 4. No heavy lifting > 10-15 pounds x weeks for hernia repairs and 2 weeks for laparoscopic cholecystectomy or appendectomy. 5. No driving for 3 days or while taking narcotic pain medications. 6. Ice to surgical site for 48 hours (30 min on, then 30 min off). 7. Up walking 10-30 minutes three times per day. 8. Resume previous home medications. 9. Follow-up 10-14 days in office for wound check or as previously
== END 2021-08-05 20:45 | disposition home or self-care (01) ==
PROVIDERS: Admitting Provider Surgery; PCP Physician Assistant; Visit Provider Surgery
PROC: 0DTJ4ZZ Resection of Appendix, Percutaneous Endoscopic Approach (ICD-10-PCS; CPT 44970; principal; 2021-08-05 13:30)
DX: K35.80 Unspecified acute appendicitis (principal); K40.90 Unilateral inguinal hernia, without obstruction or gangrene, not specified as recurrent; J44.9 Chronic obstructive pulmonary disease, unspecified; F17.210 Nicotine dependence, cigarettes, uncomplicated; R93.5 Abnormal findings on diagnostic imaging of other abdominal regions, including retroperitoneum
CPT/HCPCS: 44970; 36415; 80048; 85027; 86850; 86900; 86901; 88304; 94640; 96361; 96365; 96374; 96375; G0378; J0330; J1100; J2270; J2405; J2543; J2704; J3010; J7030; J7120

== ENCOUNTER 2022-10-24 14:27 | Observation (INO) | payer MEDICAID, SELFPAY ==
[2022-10-24] VITALS (11 sets, daily range): BP systolic 130–160; BP diastolic 68–74; PULSE 76–103; RESP 16–22; TEMP 36.6–36.9; O2SAT 91–97; BMI 16.7
--- NOTE | ~2022-10-24 | XR_ITS ---
Clinical Indication: Shortness of breath, COPD PA and lateral views of the chest: Comparison: 06/10/2021 Findings: There is extensive right upper lobe pneumonia. Probable underlying COPD. Cardiomediastinal silhouette is within normal limits. Bones and soft tissues are unremarkable. Impression: Extensive right upper lobe pneumonia. Underlying COPD. Reviewed, dictated and finalized at location . Impression: Extensive right upper lobe pneumonia. Underlying COPD.
--- NOTE | 2022-10-24 14:48 | ECG_ITS ---
Measurements Intervals [place] Rate: 96 P: 80 WI: 166 QRS: 81 QRSD: 90 T: 78 QT: 320 QTc: 406 Interpretive Statements SINUS RHYTHM NORMAL ECG COMPARED TO ECG 06/10/2021 13:42:39 SINUS RHYTHM NOW PRESENT Electronically Signed On 10-25-2022 10:19:22 CDT by Maximilian Sepulveda M.D.
[2022-10-24] MEDS: IPRATROPIUM 0.5 MG/ALBUTEROL SULFATE 2.5 MG AMPUL.NEB 3 ML INHALATION ×2 (15:03→18:53)
[2022-10-24] MEDS: methylPREDNISolone SOD SUCC 125 MG VIAL IM (15:21)
[2022-10-24 15:27] LABS: Basophils Percent Auto 1.3 % (0.0-1.0); Eosinophils Absolute Auto 0.08 K/mm3 (0.02-0.50); Hematocrit 46.7 % (40.0-54.0); Hemoglobin 15.6 g/dL (14.0-18.0); Immature Granulocyte Absolute 0.03 K/mm3 (0.00-0.00); Immature Granulocyte Percent A 0.4 % (0.0-0.0); Lymphocytes Absolute Auto 2.33 K/mm3 (1.10-4.50); Lymphocytes Percent Auto 29.3 % (18.0-42.0); Mean Corpuscular HGB Conc 33.4 g/dL (32.0-36.0); Mean Corpuscular Hemoglobin 30.7 pg (27.0-31.0); Mean Corpuscular Volume 91.9 fL (78.0-102.0); Mean Platelet Volume 10.6 fl (8.7-11.0); Monocytes Absolute Auto 1.19 K/mm3 (0.10-0.90); Neutrophils Absolute Auto 4.2 K/mm3 (1.7-7.2); Platelet Count Result 168 K/mm3 (150-420); Red Blood Count 5.08 M/mm3 (4.70-6.10); Red Cell Distribution Width 14.6 % (11.6-14.4); White Blood Count 7.9 K/mm3 (4.8-10.8)
[2022-10-24 15:37] LABS: Influenza A QL RT-PCR Negative (Negative); Influenza B QL RT-PCR Negative (Negative); RSV RNA, RT-PCR Negative (Negative); SARS-CoV-2 RNA PCR Negative (Negative)
[2022-10-24 15:44] LABS: Alanine Aminotransferase 17 U/L (16-63); Albumin Level 2.8 g/dL (3.4-5.0); Alkaline Phosphatase 74 U/L (46-116); Anion Gap 8 mmol/L (8-16); Aspartate Amino Transferase 11 U/L (15-37); Bilirubin,Total 0.4 mg/dL (0.00-1.00); Blood Urea Nitrogen 9 mg/dL (7-18); Calcium 8.8 mg/dL (8.5-10.1); Carbon Dioxide 31 mmol/L (21-32); Chloride 98 mmol/L (98-108); Estimated CRCL calculation 51 ml/min; Estimated Glomerular Filt Rate > 60; Glucose 91 mg/dL (70-99); Osmolality Calculated 282 mOsm/kg (285-295); Potassium 3.5 mmol/L (3.5-5.1); Sodium 137 mmol/L (136-145); Total Protein 8.3 g/dL (6.4-8.2)
--- NOTE | 2022-10-24 15:45 | ED.SOB ---
HPI - SOB/Dyspnea General Chief Complaint: Shortness of Breath/Dyspnea Stated Complaint: SOB Time Seen by Provider: 10/24/22 14:39 Source: patient Mode of arrival: ambulatory Limitations: no limitations History of Present Illness HPI Narrative: patient is a 62-year-old male with COPD and tobacco use up until 1 week ago with 2 packs per day for many years. Patient is having cough and shortness of breath. MD elicited complaint: shortness of breath Pertinent past history: COPD Onset (ago): week(s) (1) Timing: constant Severity: moderate Exacerbating factors: nothing Relieving factors: nothing Known history of: COPD Associated symptoms: cough Treatment prior to arrival: none Related Data Home oxygen amount: none Allergies Allergy/AdvReac Type Severity Reaction Status Date / Time No Known Allergies Allergy Verified 08/04/21 15:51 Review of Systems Review of Systems: All systems reviewed & are unremarkable except as noted in HPI and below Constitutional: Constitutional: Reports no additional constitutional complaints Eyes: Eyes: Reports no additional eye complaints ENT: Reports system reviewed and no additional complaints, except as documented Cardiovascular: Cardiovascular: Reports no additional cardiovascular complaints Respiratory: Respiratory: Reports no additional respiratory complaints Gastrointestinal: Gastrointestinal: Reports no additional gastrointestinal complaints Genitourinary: Genitourinary: Reports no additional male genitourinary complaints Musculoskeletal: Musculoskeletal: Reports no additional musculoskeletal complaints Integumentary/Breasts: Skin/Breast: Reports system reviewed and no additional complaints, except as docu Neurologic: Reports system reviewed and no additional complaints, except as documented Psychiatric: Psychiatric: Reports no additional psychiatric complaints Endocrine: Endocrine: Reports no additional endocrine complaints Hematologic/Lymphatic: Hematologic/Lymphatic: Reports no additional hematologic/lymphatic complaints Allergic/Immunologic: Allergic/Immunologic: Reports no additional allergic/immunologic complaints [facility] Past Medical History Medical History COPD (chronic obstructive pulmonary disease) ETOH abuse History of heavy alcohol use. Quit drinking in May of 2021 Reducible left inguinal hernia Smoker Surgical History Surgical History History of shoulder surgery 2005 Family History Family History Father Lung cancer Sibling Lung cancer Social History Social History Smoking packs per day: 3 Smoking cigarettes per day: 60.0 Years smoked: 40 Smoking pack-years: 120.00 Smoking status: Current every day smoker Tobacco type: cigarettes Second hand tobacco smoke exposure: No Additional smoking assessment comments: smokes 2 cigs per week Alcohol intake: current Drinks per week: 2 Alcohol use details: quit drinking daily in may 2021, now more occasional Substance use: never Occupation/Education: retired Gender identity (if verbalized by the patient): Male Spiritual care concerns: No Exam Const: General: healthy appearing Nutritional Appearance: well nourished Orientation/consciousness: patient oriented x3 HENMT: Head: normal to inspection Ears: external ears normal Eyes: Conjunctivae: conjunctivae normal Pupils: Equal, round and reactive pupils present Neck: Neck: normal visual inspection Chest: Chest palpation & inspection: normal inspection of the chest Resp: Effort & Inspection: normal respiratory effort Auscultation: rhonchi and wheezes Cardio: Rate: regular rate Rhythm: regular rhythm Heart sounds: no murmurs GI: Inspection: non-distended GI Palp: Yes Soft to palpation and No Tenderness to palpation present (GI) Auscultation
[2022-10-24 15:55] LABS: Troponin I < 4.0 ng/L (0.00-60.4)
[2022-10-24] MEDS: AZITHROMYCIN 250 MG TABLET 500 MG PO (16:06)
[2022-10-24 17:11] LABS: Lactic Acid Reflex 1.5 mmol/L (0.4-2.0)
[2022-10-24 17:15] LABS: NT Pro B Type Natriuretic Pept 113 pg/mL (0-125)
[2022-10-24] MEDS: SODIUM CHLORIDE 0.9% IV 1,000 ML 999 ML IV CONT (17:23)
[2022-10-24] MEDS: PIPERACILLN/TAZ 3.375GM/NS50ML 3.375 GM/50 ML BAG IVPB (17:29)
[2022-10-24] MEDS: SODIUM CHLORIDE 0.9% IV 500 ML 999 ML IV CONT (17:30)
--- NOTE | 2022-10-24 18:15 | PC.NURSE ---
Patient arrived on unit from ED in w/c. Patient able to stand and walk unassisted to bed. Patient educated on use of call light, fall precautions, bed controls, Rapid response protocol, bed controls and hospital policies related to visiting hours and infection control. Patient voiced understanding. Patient in possession of cell phone, still photographer, pants, socks, shirt and shoes.
[2022-10-25] VITALS (17 sets, daily range): BP systolic 118–135; BP diastolic 75–79; PULSE 77–95; RESP 14–20; TEMP 36.3–36.5; O2SAT 91–93
[2022-10-25] MEDS: IPRATROPIUM 0.5 MG/ALBUTEROL SULFATE 2.5 MG AMPUL.NEB 3 ML INHALATION ×5 (00:30→23:22)
[2022-10-25 05:10] LABS: Basophils Absolute Auto 0.02 K/mm3 (0.00-0.10); Basophils Percent Auto 0.4 % (0.0-1.0); Hematocrit 41.7 % (40.0-54.0); Hemoglobin 13.8 g/dL (14.0-18.0); Immature Granulocyte Absolute 0.03 K/mm3 (0.00-0.00); Immature Granulocyte Percent A 0.6 % (0.0-0.0); Lymphocytes Absolute Auto 0.73 K/mm3 (1.10-4.50); Lymphocytes Percent Auto 14.1 % (18.0-42.0); Mean Corpuscular HGB Conc 33.1 g/dL (32.0-36.0); Mean Corpuscular Hemoglobin 30.6 pg (27.0-31.0); Mean Corpuscular Volume 92.5 fL (78.0-102.0); Mean Platelet Volume 10.6 fl (8.7-11.0); Monocytes Absolute Auto 0.16 K/mm3 (0.10-0.90); Monocytes Percent Auto 3.1 % (2.0-11.0); Neutrophils Absolute Auto 4.2 K/mm3 (1.7-7.2); Neutrophils Percent Auto 81.8 % (50.0-70.0); Platelet Count Result 141 K/mm3 (150-420); Red Blood Count 4.51 M/mm3 (4.70-6.10); Red Cell Distribution Width 14.6 % (11.6-14.4); White Blood Count 5.2 K/mm3 (4.8-10.8)
[2022-10-25 05:18] LABS: Anion Gap 8 mmol/L (8-16); Blood Urea Nitrogen 8 mg/dL (7-18); Calcium 8.5 mg/dL (8.5-10.1); Carbon Dioxide 27 mmol/L (21-32); Chloride 102 mmol/L (98-108); Estimated CRCL calculation 54 ml/min; Estimated Glomerular Filt Rate > 60; Glucose 211 mg/dL (70-99); Osmolality Calculated 288 mOsm/kg (285-295); Potassium 3.7 mmol/L (3.5-5.1); Sodium 137 mmol/L (136-145)
[2022-10-25] MEDS: methylPREDNISolone SOD SUCC 125 MG VIAL 60 MG IV PUSH ×3 (08:47→20:21)
[2022-10-25] MEDS: NICOTINE (*PBKC) 21 MG PATCH 1 PATCH TRANSDERM (09:45)
[2022-10-25] MEDS: ENOXAPARIN 40 MG/0.4 ML SYRINGE SUB-Q (09:46)
[2022-10-25] MEDS: AZITHROMYCIN 500 MG/NS 250 ML 500 MG/250 ML BAG 250 MG IVPB (10:38)
--- NOTE | 2022-10-25 11:23 | PM.IMHP ---
H&P: HPI History of Present Illness Date/Time: 10/25/22 11:23 Chief Complaint: Dyspnea Narrative: This very pleasant 62 year old male patient with PMH of Nicotine abuse stopped 2 weeks ago, ETOH abuse that stopped in 05/2021, and COPD presented to the ER last evening with complaints of having three days of increasing dyspnea and cough. No fevers. Workup in the ER was performed and it was determined that pt. has a RUL PNA. While in ER, he had an oxygen saturation decrease prompting admission and for IVF resuscitation. Pt. was not meeting sepsis criteria otherwise. He was admitted to the hospital for continued monitoring, evaluation and IV abx as well as supportive management. He has interval improvement in how he feels overall. He has remained afebrile and currently is not requiring any supplemental oxygen, but has a very congested sounding cough and states it seems worse. No CP, N/V/D and no Urinary complaints. Review of Systems Review of Systems: All systems reviewed & are unremarkable except as noted in HPI and below PMFSH Past Medical History Medical History COPD (chronic obstructive pulmonary disease) ETOH abuse History of heavy alcohol use. Quit drinking in May of 2021 Reducible left inguinal hernia Smoker Surgical History Surgical History History of shoulder surgery 2005 Family History Family History Father Lung cancer Sibling Lung cancer Social History Social History Smoking packs per day: 2.5 Smoking cigarettes per day: 50.0 Years smoked: 40 Smoking pack-years: 100.00 Smoking status: Former smoker Tobacco type: cigarettes Second hand tobacco smoke exposure: Yes Smoking end date: 10/08/22 Additional smoking assessment comments: smokes 2 cigs per week Alcohol intake: former Drinks per week: 2 Alcohol use details: quit drinking daily in may 2021, now more occasional Substance use: never Lack of Transportation: No Lack of Food: Never True Current Housing: I Have Housing Concerned About Future Housing: No Difficulty Paying Gas/Electric Bills: No Difficulty Paying for Meds: No Currently Unemployed: No Education: High School Diploma/GED Difficulty w/ Childcare or Family Care: No Occupation/Education: retired Gender identity (if verbalized by the patient): Male Spiritual care concerns: No Meds Home Medications and Allergies Home Medications Medication Instructions Recorded Confirmed Type albuterol sulfate 90 mcg/actuation 2 puff inhalation QID PRN 06/11/21 10/24/22 Rx aerosol inhaler (ProAir HFA) shortness of breath or wheezing #6.7 grams nebulizers #1 ea 06/11/21 10/24/22 Rx tiotropium bromide 18 mcg capsule 1 cap inhalation DAILY 90 days #30 06/11/21 10/24/22 Rx with inhalation device (Spiriva inhalations with HandiHaler) nebulizers #1 ea 06/12/21 10/24/22 Rx Allergies Allergy/AdvReac Type Severity Reaction Status Date / Time No Known Allergies Allergy Verified 08/04/21 15:51 Vital Signs Vital Signs - 24 hr 10/24/22 14:42 10/24/22 15:04 10/24/22 15:13 Temperature 98 F Pulse Rate 76 93 93 Respiratory Rate 22 H 20 18 Blood Pressure 160/68 H Pulse Oximetry 97 96 96 Oxygen Delivery Room Air Oxygen Flow Rate 10/24/22 15:15 10/24/22 16:11 10/24/22 16:48 Temperature 98.4 F Pulse Rate 100 95 Respiratory Rate 20 20 Blood Pressure 133/74 Pulse Oximetry 95 92 91 Oxygen Delivery Room Air Room Air Nasal Cannula Oxygen Flow Rate 2 10/24/22 17:57 10/24/22 16:48 10/24/22 18:15 Temperature Pulse Rate 103 H 93 Respiratory Rate 20 16 Blood Pressure 130/74 Pulse Oximetry 93 91 97 Oxygen Delivery Nasal Cannula Nasal Cannula Nasal Cannula Oxygen Flow Rate 2 2 1 10/24/22 18:54 10/24/22 18:58 10/24/22 20:00
--- NOTE | 2022-10-25 17:04 | PC.NURSE ---
Patient resting in bed, watching TV. Alert and oriented x3. Pleasant and able to respond appropriately. Patient denies pain or SOB. Call light and belongings within reach.
--- NOTE | 2022-10-25 18:28 | PC.NURSE ---
Patient fed self supper. Continues to deny pain. Call light and belongings within reach.
[2022-10-25] MEDS: guaiFENesin 12 HR 600 MG TABCR 1200 MG PO (20:23)
[2022-10-26] VITALS (8 sets, daily range): BP systolic 117–132; BP diastolic 73–77; PULSE 80–106; RESP 14–20; TEMP 36.6; O2SAT 87–92
[2022-10-26] MEDS: IPRATROPIUM 0.5 MG/ALBUTEROL SULFATE 2.5 MG AMPUL.NEB 3 ML INHALATION (04:57)
[2022-10-26] MEDS: methylPREDNISolone SOD SUCC 125 MG VIAL 60 MG IV PUSH (05:05)
[2022-10-26 05:26] LABS: Basophils Absolute Auto 0.01 K/mm3 (0.00-0.10); Basophils Percent Auto 0.1 % (0.0-1.0); Hematocrit 40.9 % (40.0-54.0); Hemoglobin 13.8 g/dL (14.0-18.0); Immature Granulocyte Absolute 0.05 K/mm3 (0.00-0.00); Immature Granulocyte Percent A 0.6 % (0.0-0.0); Lymphocytes Absolute Auto 0.95 K/mm3 (1.10-4.50); Lymphocytes Percent Auto 11.1 % (18.0-42.0); Mean Corpuscular HGB Conc 33.7 g/dL (32.0-36.0); Mean Corpuscular Hemoglobin 31.1 pg (27.0-31.0); Mean Corpuscular Volume 92.1 fL (78.0-102.0); Mean Platelet Volume 10.8 fl (8.7-11.0); Monocytes Absolute Auto 0.29 K/mm3 (0.10-0.90); Monocytes Percent Auto 3.4 % (2.0-11.0); Neutrophils Absolute Auto 7.3 K/mm3 (1.7-7.2); Neutrophils Percent Auto 84.8 % (50.0-70.0); Platelet Count Result 193 K/mm3 (150-420); Red Blood Count 4.44 M/mm3 (4.70-6.10); Red Cell Distribution Width 14.7 % (11.6-14.4); White Blood Count 8.6 K/mm3 (4.8-10.8)
[2022-10-26 05:51] LABS: Alanine Aminotransferase 18 U/L (16-63); Albumin Level 2.3 g/dL (3.4-5.0); Alkaline Phosphatase 56 U/L (46-116); Anion Gap 8 mmol/L (8-16); Aspartate Amino Transferase 13 U/L (15-37); Bilirubin,Total 0.1 mg/dL (0.00-1.00); Blood Urea Nitrogen 12 mg/dL (7-18); Calcium 8.5 mg/dL (8.5-10.1); Carbon Dioxide 27 mmol/L (21-32); Chloride 105 mmol/L (98-108); Estimated CRCL calculation 62 ml/min; Estimated Glomerular Filt Rate > 60; Glucose 131 mg/dL (70-99); Osmolality Calculated 291 mOsm/kg (285-295); Potassium 3.8 mmol/L (3.5-5.1); Sodium 140 mmol/L (136-145); Total Protein 6.7 g/dL (6.4-8.2)
[2022-10-26] MEDS: NICOTINE (*PBKC) 21 MG PATCH 1 PATCH TRANSDERM (09:19)
[2022-10-26] MEDS: guaiFENesin 12 HR 600 MG TABCR 1200 MG PO (09:19)
[2022-10-26] MEDS: ENOXAPARIN 40 MG/0.4 ML SYRINGE SUB-Q (09:20)
--- NOTE | 2022-10-26 09:26 | HOMEO2EVAL ---
Evaluation was performed at [facility] [place] [facility] Oxygen Evaluation RC: Home Oxygen (O2) Evaluation Start: 10/26/22 08:47 Freq: ONCE Status: Active Protocol: RPE Activity Type Activity Date Activity User E-sign Co-sign Detail Recorded Client Recorded Date Recorded By Document 10/26/22 09:05 PARISH [email or web address] 10/26/22 09:26 SJB Document 10/26/22 09:07 SJB [email or web address] 10/26/22 09:26 SJB Document 10/26/22 09:14 SJB [email or web address] 10/26/22 09:26 SJB 10/26/22 10/26/22 10/26/22 09:05 09:07 09:14 Home O2 Evaluation [Oxygen] -Test Phase Resting Exercise Exercise -Oxygen Delivery Room Air Room Air Nasal Cannula -Oxygen Flow Rate (L/min) 1 [Pulse Oximetry] -Pulse Oximetry (90-100 %) 92 87 L 91 [Pulse Rate] -Pulse Rate (60-100 beats/min) 98 106 H 105 H [Evaluation] -Activity Tolerance Excellent Excellent -Rating of Perceived Dyspnea (PD) +1 Mild, +1 Mild, Noticeable to Noticeable to the Participant the Participant but Not to an but Not to an Observer Observer -Rate of Perceived Exertion (PE) 9 Very light 11 Fairly light Query Text:Click the Protocol Button to View the RPE Scale [Exercise] -Ambulation Distance (feet) 190 600 -Ambulation Distance (meters) 57.90 182.87 [Comments] -Home Oxygen Evaluation Comments Will begin walk After approx. After a total on room air. 190 ft on room of approx 790 air, pt's Spo2 ft, patient dropped to 87%. finished walk Started on 1 on 1 lpm, lpm, and after keeping Sp02 at about a 2 91% and above. minute recovery Pt was , pt's Sp02 educated on the went up to 94%. importance of Hr ranged PLB. from 98- 106. [Charges] -Treatment Charges O2 Evaluation - Outpatient
[2022-10-26] MEDS: AZITHROMYCIN 500 MG/NS 250 ML 500 MG/250 ML BAG 250 MG IVPB (10:06)
--- NOTE | 2022-10-26 10:10 | PM.DS ---
DS: Admitting Diagnosis Discharge Date 10/26/22 Admitting Diagnosis Pneumonia, COPD Exacerbation, Nicotine Abuse, New oxygen requirement DS: Discharge Diagnosis Discharge Diagnosis (1) Pneumonia: Code(s): J18.9 - Pneumonia, unspecified organism Status: Acute Assessment and Plan: Discharge to home with Azithromycin and Ceftin for continued abx treatment. Pt requires 1L Supplemental oxygen with exertion based on respiratory's 6 minute walk. Continue Spiriva and Albuterol PRN. Start Duonebs Q6 hrs. Guaifenesin 1200 mg Q12 hrs continued for home Robitussin DM prn continued for home Blood cultures pending at time of discharge. (2) Acute exacerbation of chronic obstructive pulmonary disease: Code(s): J44.1 - Chronic obstructive pulmonary disease with (acute) exacerbation Status: Acute Assessment and Plan: Monitor labs and VS. Prednisone taper for home then resume home dose. Start 1L Supplemental oxygen with exertion. (3) Smoker: Code(s): F17.200 - Nicotine dependence, unspecified, uncomplicated Status: Acute Assessment and Plan: Recent cessation within the past couple of weeks. Nicotine patch 21 mg Daily to continue at home. (4) Requires supplemental oxygen: Code(s): Z99.81 - Dependence on supplemental oxygen Status: Acute Assessment and Plan: Pt. had 6-minute walk with respiratory and his sats stayed at 87%. He requires 1L supplemental oxygen with exertion. This is set up for patient and he is able to discharge. DS: Summary Hospital Course Reason for hospitalization: Pneumonia and COPD exacerbation Hospital Course: This very pleasant 62 year old male patient with PMH of Nicotine abuse stopped 2 weeks ago, ETOH abuse that stopped in 05/2021, and COPD presented to the ER now two days ago with complaints of having three days of increasing dyspnea and cough. No fevers. Workup in the ER was performed and it was determined that pt. has a RUL PNA. While in ER, he had an oxygen saturation decrease prompting admission and for IVF resuscitation. Pt. was not meeting sepsis criteria otherwise. He was admitted to the hospital for continued monitoring, evaluation and IV abx as well as supportive management. He has had interval improvement in how he feels overall, and he has remained afebrile. He would like to go home and other than reporting some feeling of being winded with exertion, he has no acute complaints. The pt. had a 6-minute walk this morning and he dropped his saturations to 87% with exertion and maintained. He requires 1L supplemental oxygen at home with exertion and he is agreeable to this plan. Overall the patient's hospital course has been favorable and he is stable for discharge at this time. Status at Discharge Cognitive/behavioral status at discharge: At baseline, A&Ox3, and able to verbalize understanding of all instructions. Functional status at discharge: independent ambulation Time Spent with Patient Time attestation: Total time spent providing and/or coordinating discharge services: 48 minutes Time spent: Greater than 30 minutes Specific discharge activities: Discharge activities, follow up and when to return to ER if needed. Exam Const: General: comfortable and no acute distress Other: Pleasant elderly male patient lying supine in bed at this time in no acute distress. HENMT: Face/Nose/Sinus: Normal nares present Mouth: Yes moist mucous membranes Eyes: General: appearance normal, both eyes and all related structures Sclera: sclerae normal Pupils: Equal, round and reactive pupils present EOM: EOMs intact bilaterally Neck: Neck: supple and no JVD Chest: Other: Non tender Resp: Effort & Inspection: normal respiratory effort Auscultation: clear to auscultation bilaterally Other: Prolonged expiratory phase audible. Cardio: Rate: regular rate Rhythm: regular rhythm Heart sounds: no gallops, no murmurs and no
--- NOTE | 2022-10-26 13:56 | PC.NURSE ---
Pt discharged to home with self care. Pt instructed regarding Oxygen use at home: smoking precautions with O2 in the house. Medications reviewed and pt instructed on dosages, purpose, times and SE. Pt verbalized understanding of instructions. Pt assisted to the car via WC by this RN.
--- NOTE | 2022-10-29 13:29 | PC.NURSE ---
Pt states he received and understood his discharge instructions. Pt also states everybody was good, I really appreciate the way you treat people there .
== END 2022-10-26 12:45 | disposition home or self-care (01) ==
LOC: CHSED 16:05 → CHS2ND 17:47
PROVIDERS: Nurse Practitioner Adult Health; Nurse Practitioner Family; Admitting Provider Internal Medicine; Emergency Provider Emergency Medicine; PCP Physician Assistant; Visit Provider Internal Medicine
DX: J18.9 Pneumonia, unspecified organism (principal); J44.0 Chronic obstructive pulmonary disease with (acute) lower respiratory infection; F10.11 Alcohol abuse, in remission; Z87.891 Personal history of nicotine dependence; Z20.822 Contact with and (suspected) exposure to COVID-19
CPT/HCPCS: 36415; 71046; 80048; 80053; 83605; 83880; 84484; 85025; 87040; 87637; 93005; 94618; 94640; 96361; 96365; 96367; 96372; 96375; 96376; 99285; A9270; G0378; G0379; J0456; J0696; J1650; J2543; J2930; J7030; J7040

== ENCOUNTER 2022-11-11 10:05 | Outpatient (CLI) | payer MEDICAID, SELFPAY ==
--- NOTE | ~2022-11-11 | XR_ITS ---
XR chest 2V 11/11/2022 10:24 Indication: Pneumonia. COPD. Procedure: 2 view chest Comparison: 10/24/2022 Findings: There is extensive scarring of the right upper lobe. Heart size normal. There is decreased is consolidation in the right upper lobe compared with 10/24/2022, consistent with resolving pneumoni a. The lungs are hyperinflated which is consistent with, but not diagnostic of chronic obstructive pu lmonary disease. No acute osseous abnormality. Impression: 1: Significantly improved consolidation right upper lobe, consistent with resolving pneumonia. Extens jesús right perihilar/right upper lobe scarring. Reviewed, dictated and finalized at location L. Impression: 1: Significantly improved consolidation right upper lobe, consistent with resol ving pneumonia. Extensive right perihilar/right upper lobe scarring.
== END 2022-11-11 10:06 | disposition home or self-care (01) ==
LOC: CHSIMG 10:08
PROVIDERS: PCP Physician Assistant; Visit Provider Physician Assistant
DX: J18.9 Pneumonia, unspecified organism (principal); R91.8 Other nonspecific abnormal finding of lung field
CPT/HCPCS: 71046

== ENCOUNTER 2023-04-16 17:14 | Emergency (ER) | payer BC, SELFPAY ==
[2023-04-16] VITALS (26 sets, daily range): BP systolic 111–167; BP diastolic 68–97; PULSE 84–102; RESP 12–23; TEMP 36.6; O2SAT 92–97
--- NOTE | ~2023-04-16 | CT_ITS ---
EXAMINATION: CTA chest PE protocol DATE: 04/16/2023 18:49 INDICATION: dyspnea, recent surgery. ELEVATED D-DIMER. COPD. COUGH. TECHNIQUE: Computed tomography angiography (CTA) of the chest was performed with 100 mL Omnipaque-350 intravenous contrast timed to evaluate the pulmonary arteries. Coronal maximum intensity projection 3D-reconstructions were created by the technologist. The dose-length product (DLP) was 176.32 mGy-cm. Automated exposure control and iterative reconstruction technique were employed. COMPARISON: 06/10/2021; x-ray chest 11/11/2022 and 04/16/2023. FINDINGS: Lung parenchyma and airways: Stable left apical scar. Severe emphysematous change. Persistent left up per lobe scarring, and a region of previously described pneumonia Mild diffuse groundglass opacities and septal thickening. Minimal tracheal secretions. Pleura: Unremarkable. Thoracic inlet, axillae and chest wall: Unremarkable. Thoracic aorta: Normal. Mediastinum: Mild bilateral hilar and mediastinal lymphadenopathy. Heart and pericardium: Normal. Coronary artery calcifications: Absent. Upper abdomen: No significant finding. Bones: No acute osseous finding. Pulmonary arteries: Study quality: Adequate. No pulmonary emboli detected. IMPRESSION: No CT evidence of acute pulmonary embolus. Mild interstitial edema. Infection not excluded. Severe emphysema. Mild bilateral hilar and mediastinal lymphadenopathy. Presumed left right upper lung scar, consider short-term 3 month follow-up noncontrast CT of the ches t demonstrate stability. Reviewed, dictated and finalized at location K. NCIAL ASSISTANCE ADVISOR IMPRESSION: No CT evidence of acute pulmonary embolus. Mild interstitial edema. Infection not excluded. Severe emphysema. Mild bilateral hilar and mediastinal lymphadenopathy. Presumed left right upper lung scar, consider short-term 3 month follow-up nonc ontrast CT of the chest demonstrate stability.
--- NOTE | ~2023-04-16 | XR_ITS ---
EXAMINATION: XR chest 2V Exam Date/Time: 04/16/2023 18:04 NEUROLOGIST HISTORY: increased sob, wheezing, occ cough hx COPD, pnuemonia,former smoker. Comparison: 11/11/2022. Concurrent CTPA. RESULT: Lines, tubes, and devices: None. Lungs and pleura: Severe emphysematous change. Left upper lung scar/fibrosis. Cardiomediastinal silhouette: Stable. Other: No acute osseous or upper abdominal finding. IMPRESSION: No acute cardiopulmonary process. Please also refer to the report of the concurrent CTPA. Reviewed, dictated and finalized at location K. OLOGIST IMPRESSION: No acute cardiopulmonary process. [facility] also [facility].
--- NOTE | 2023-04-16 17:26 | ECG_ITS ---
Measurements Intervals [place] Rate: 95 P: 80 MA: 168 QRS: 71 QRSD: 84 T: 68 QT: 321 QTc: 404 Interpretive Statements SINUS RHYTHM CANNOT RULE OUT SEPTAL INFARCT, AGE INDETERMINATE BASELINE ARTIFACT- I, III, AVR, AVL, AVF, V1-V6 ABNORMAL ECG COMPARED TO ECG 10/24/2022 15:41:32 NO SIGNIFICANT CHANGES Electronically Signed On 04-16-2023 19:34:14 PATTERNMAKER PLASTER by Lawson Escudero D.O.
--- NOTE | 2023-04-16 17:28 | ED.SOB ---
HPI - SOB/Dyspnea General Chief Complaint: Shortness of Breath/Dyspnea <Joel Webber MD - Last Filed: 04/26/23 17:27> Stated Complaint: SOB <Joel Webber MD - Last Filed: 04/26/23 17:27> Time Seen by Provider: 04/16/23 17:17 <Joel Webber MD - Last Filed: 04/26/23 17:27> Source: patient <Joel Webber MD - Last Filed: 04/26/23 17:27> Mode of arrival: ambulatory <Joel Webber MD - Last Filed: 04/26/23 17:27> History of Present Illness HPI Narrative: 62 yo M with PMHx of COPD (smoked 3 ppd for 30 years, quit 5 months ago), PNA, recent hernia surgery (2 weeks ago), presents to ED due to 2 days of shortness of breath, chest tightness, and pain on his right side intermittently. He is on oxygen 1L at baseline at home, mostly with exertion. He used his Duoneb once this morning and albuterol inhaler about 2h prior to arrival. Has a dry cough intermittently. No productive cough. No congestion, abdominal pain, viral syndrome. <Joel Webber MD - Last Filed: 04/26/23 17:27> MD elicited complaint: shortness of breath, cough and chest pain <Joel Webber MD - Last Filed: 04/26/23 17:27> Pertinent past history: COPD <Joel Webber MD - Last Filed: 04/26/23 17:27> Onset (ago): day(s) <Joel Webber MD - Last Filed: 04/26/23 17:27> Timing: constant <Joel Webber MD - Last Filed: 04/26/23 17:27> Severity: moderate <Joel Webber MD - Last Filed: 04/26/23 17:27> Exacerbating factors: nothing <Joel Webber MD - Last Filed: 04/26/23 17:27> Relieving factors: nothing <Joel Webber MD - Last Filed: 04/26/23 17:27> Known history of: COPD <Joel Webber MD - Last Filed: 04/26/23 17:27> Associated symptoms: chest pain and pain with inspiration <Joel Webber MD - Last Filed: 04/26/23 17:27> Treatment prior to arrival: oxygen <Joel Webber MD - Last Filed: 04/26/23 17:27> Related Data Home oxygen amount: 1 liter <Joel Webber MD - Last Filed: 04/26/23 17:27> Allergies/Adverse Reactions: Allergies Allergy/AdvReac Type Severity Reaction Status Date / Time No Known Allergies Allergy Verified 04/16/23 17:20 <Joel Webber MD - Last Filed: 04/26/23 17:27> Review of Systems Constitutional: Constitutional: Reports as per HPI and Reports no additional constitutional complaints <Joel Webber MD - Last Filed: 04/26/23 17:27> Eyes: Eyes: Reports as per HPI and Reports no additional eye complaints <Joel Webber MD - Last Filed: 04/26/23 17:27> ENT: Reports system reviewed and no additional complaints, except as documented and Reports as per HPI <Joel Webber MD - Last Filed: 04/26/23 17:27> Cardiovascular: Cardiovascular: Reports as per HPI and Reports no additional cardiovascular complaints <Joel Webber MD - Last Filed: 04/26/23 17:27> Respiratory: Respiratory: Reports as per HPI and Reports no additional respiratory complaints <Joel Webber MD - Last Filed: 04/26/23 17:27> Gastrointestinal: Gastrointestinal: Reports as per HPI and Reports no additional gastrointestinal complaints <Joel Webber MD - Last Filed: 04/26/23 17:27> Genitourinary: Genitourinary: Reports as per HPI <Joel Webber MD - Last Filed: 04/26/23 17:27> Musculoskeletal: Musculoskeletal: Reports no additional musculoskeletal complaints and Reports as per HPI <Joel Webber MD - Last Filed: 04/26/23 17:27> Integumentary/Breasts: Skin/Breast: Reports system reviewed and no additional complaints, except as docu and Reports as per HPI <Joel Webber MD - Last Filed: 04/26/23 17:27> Neurologic: Reports system reviewed and no additional complaints, except as documented and Reports as per HPI <Joel Webber MD - Last Filed: 04/26/23 17:27> Psychiatric: Psychiatric: Reports no additional psychiatric complaints and Reports as per HPI <Joel Webber MD - Last Filed: 04/26/23 17:27> Endocrine: Endocrine: Reports no additional endocrine complaints and Re
[2023-04-16 17:52] LABS: Base Excess ABG 2.2 mmol/L (0-2); HCO3 ABG 25.7 mmol/L (23-29); Oxygen Content ABG 20.5 %vol (16.0-22.0); Oxygen Saturation ABG 94.6 % (95-97); Oxyhemoglobin 93.7 % (94-100); PCO2 ABG 36.6 mmHg (35-45); PO2 ABG 69.5 mmHg (80-90); Total Hemoglobin 15.6 g/dL (12.0-18.0); pH ABG 7.46 (7.35-7.45)
[2023-04-16 17:57] LABS: Hematocrit 44.1 % (40.0-54.0); Hemoglobin 14.8 g/dL (14.0-18.0); Mean Corpuscular HGB Conc 33.6 g/dL (32.0-36.0); Mean Corpuscular Hemoglobin 29.7 pg (27.0-31.0); Mean Corpuscular Volume 88.6 fL (78.0-102.0); Mean Platelet Volume 10.2 fl (8.7-11.0); Platelet Count Result 211 K/mm3 (150-420); Red Blood Count 4.98 M/mm3 (4.70-6.10); Red Cell Distribution Width 13.2 % (11.6-14.4); White Blood Count 5.9 K/mm3 (4.8-10.8)
[2023-04-16 18:18] LABS: D Dimer 0.82 mg/L (0.19-0.50)
[2023-04-16 18:19] LABS: Device NASAL CANNULA; Modified Allen's Test Pass; Site Drawn LEFT RADIAL
[2023-04-16 18:22] LABS: Alanine Aminotransferase 16 U/L (16-63); Albumin Level 3.2 g/dL (3.4-5.0); Alkaline Phosphatase 96 U/L (46-116); Anion Gap 7 mmol/L (8-16); Aspartate Amino Transferase 15 U/L (15-37); Bilirubin,Total 0.4 mg/dL (0.00-1.00); Blood Urea Nitrogen 16 mg/dL (7-18); Calcium 8.3 mg/dL (8.5-10.1); Carbon Dioxide 28 mmol/L (21-32); Chloride 99 mmol/L (98-108); Estimated CRCL calculation 58 ml/min; Estimated Glomerular Filt Rate > 60; Glucose 95 mg/dL (70-99); NT Pro B Type Natriuretic Pept 51 pg/mL (0-125); Osmolality Calculated 279 mOsm/kg (285-295); Potassium 3.7 mmol/L (3.5-5.1); Sodium 134 mmol/L (136-145); Total Protein 7.9 g/dL (6.4-8.2); Troponin I 6.3 ng/L (0.00-60.4)
[2023-04-16 18:26] LABS: Appearance Urine Clear (Clear); Bilirubin Urine Negative (Negative); Blood Urine 1+ (Negative); Color Urine Light Yellow (Yellow); Glucose Urine UA Negative (Negative); Ketones Urine Negative (Negative); Leukocyte Esterase Ur Negative LEU/UL (Negative); Nitrate Urine Negative (Negative); Protein Urine Negative (Negative); Specific Grav Ur <= 1.005 (1.010-1.020); Urobilinogen Urine 0.2 mg/dL (0.2-1.0); pH Urine 6.5 (5.0-8.0)
[2023-04-16 18:33] LABS: Add Urine Microscopic? YES; RBC Urine None seen /hpf (0-2)
[2023-04-16 18:48] LABS: Influenza A QL RT-PCR Negative (Negative); Influenza B QL RT-PCR Negative (Negative); RSV RNA, RT-PCR Negative (Negative); SARS-CoV-2 RNA PCR Negative (Negative)
[2023-04-16 19:24] LABS: Band Neutrophils Percent 0 % (0-6); Eosinophils Absolute Manual 0.35 K/mm3 (0.02-0.5); Eosinophils Percent Manual 6 % (1-6); Lymphocytes Absolute Manual 2.06 K/mm3 (1.1-4.5); Lymphocytes Percent Manual 35 % (18-44); Monocytes Absolute Manual 0.53 K/mm3 (0.1-0.90); Monocytes Percent Manual 9 % (3-9); Neutrophils Absolute Manual 2.83 K/mm3 (1.3-6.7); Neutrophils Percent Manual 48 % (46-73); Total Cells Counted 100
[2023-04-16 19:25] LABS: Atypical Lymphocytes Present; Basophils Absolute Manual 0.11 K/mm3 (0-0.1); Basophils Percent Manual 2 % (0-1); Giant Platelets Present; Large Platelets Present; Platelet Clumps Present; Platelet Estimate Adequate (Adequate); Schistocytes None Seen (NORMAL)
[2023-04-16] MEDS: AZITHROMYCIN 250 MG TABLET 500 MG PO (19:49)
[2023-04-16] MEDS: predniSONE 40 MG, predniSONE 10 MG 50 MG PO (19:50)
--- NOTE | 2023-04-18 10:03 | PC.NURSE ---
Prescriptions Called to [facility] [place] per patient request. Patient was not able to get at [facility] due to insurance. RN spoke with [facility] and cancelled original prescriptions.
== END 2023-04-16 20:23 | disposition home or self-care (01) ==
PROVIDERS: Emergency Medicine; Emergency Provider Family Medicine; PCP Physician Assistant
DX: J43.9 Emphysema, unspecified (principal); Z87.891 Personal history of nicotine dependence
CPT/HCPCS: 36415; 36600; 71046; 71275; 80053; 81001; 82805; 83880; 84484; 85025; 85380; 87637; 93005; 99284; A9270; J7512; Q9967

== ENCOUNTER 2023-05-02 09:13 | Emergency (ER) | payer BC, SELFPAY ==
[2023-05-02] VITALS (15 sets, daily range): BP systolic 112–137; BP diastolic 72–88; PULSE 94–109; RESP 14–20; TEMP 36.8; O2SAT 90–97
--- NOTE | ~2023-05-02 | CT_ITS ---
EXAMINATION: CTA chest PE protocol DATE: 05/02/2023 10:42 INDICATION: Shortness of breath and right-sided chest pain for 4 days TECHNIQUE: Computed tomography angiography (CTA) of the chest was performed with 100 mL Omnipaque-350 intravenous contrast timed to evaluate the pulmonary arteries. Coronal maximum intensity projection 3D-reconstructions were created by the technologist. Automated exposure control and iterative reconst ruction technique were employed. Exam dose: 177.88 mGy-cm total exam DLP. COMPARISON: April 16, 2023 CT pulmonary scan 06/10/2021 CTA chest FINDINGS: There is diagnostic contrast enhancement of the pulmonary arteries and no evidence of pulmo nary embolism. No thoracic aortic aneurysm. Normal heart size. There is mild right hilar lymph node prominence, likely reactive, secondary to prominent consolidatin g infiltrate in the dependent right lower lobe predominantly, consistent with right lower lobe pneumo rita or aspiration pneumonitis, likely increased in distribution since 04/16/2023. Continued short-term follow-up is recommended to demonstrate complete infiltrate clearing in order to exclude any underly ing pulmonary malignancy. Severe emphysematous changes of the lungs. Chronic left apical scarring. IMPRESSION: Extensive patchy consolidation in the right lower lobe, particularly in the dependent as pect of the right lower lobe, consistent with right lower lobe pneumonia and/or aspiration pneumoniti s Recommend short-term follow-up to ensure complete clearing in order to exclude any possible underlyin g malignancy Severe emphysema Reviewed, dictated and finalized at Location [facility]. Reviewed, dictated and finalized at location B. SEWER IMPRESSION: Extensive patchy consolidation in the right lower lobe, particular ly in the dependent aspect of the right lower lobe, consistent with right lower lobe pneumonia and/or aspiration pneumonitis Recommend short-term follow-up to ensure complete clearing in order to exclude any possible underlying malignancy Severe emphysema
--- NOTE | 2023-05-02 09:41 | ED.GENADULT ---
HPI - General Adult General Chief complaint: Shortness of Breath/Dyspnea Stated complaint: SOB History of Present Illness HPI narrative: 62yo man with COPD presents with worsening shortness of breath, chills, aches, and right sided chest and flank pain about the inferior ribs, which is new in the past couple of days. Asymmetric inspiratory wheezing on exam. Related Data Home Medications Medication Instructions Recorded Confirmed budesonide-formoterol HFA 160 2 inh inhalation BID 05/02/23 05/02/23 mcg-4.5 mcg/actuation aerosol inhaler (Symbicort) loratadine 10 mg tablet (Allergy 10 mg PO DAILY 05/02/23 05/02/23 Relief (loratadine)) Allergies Allergy/AdvReac Type Severity Reaction Status Date / Time No Known Allergies Allergy Verified 05/02/23 10:42 Review of Systems Review of Systems: All systems reviewed & are unremarkable except as noted in HPI and below Constitutional: Constitutional: Reports chills and Reports fever(s) Eyes: Eyes: Denies change in vision ENT: Denies dysphagia Cardiovascular: Cardiovascular: Denies chest pain Respiratory: Respiratory: Reports cough, Reports dyspnea and Reports wheezing Gastrointestinal: Gastrointestinal: Denies abdominal pain Musculoskeletal: Musculoskeletal: Reports myalgias PMFSH Past Medical History Medical History COPD (chronic obstructive pulmonary disease) ETOH abuse History of heavy alcohol use. Quit drinking in May of 2021 Reducible left inguinal hernia Smoker Surgical History Surgical History History of shoulder surgery 2005 Family History Family History Father Lung cancer Sibling Lung cancer Social History Social History Smoking packs per day: 2.5 Smoking cigarettes per day: 50.0 Years smoked: 40 Smoking pack-years: 100.00 Smoking status: Former smoker Tobacco type: cigarettes Second hand tobacco smoke exposure: Yes Smoking end date: 10/08/22 Additional smoking assessment comments: smokes 2 cigs per week Alcohol intake: former Drinks per week: 2 Alcohol use details: quit drinking daily in may 2021, now more occasional Substance use: never Lack of Transportation: No Lack of Food: Never True Current Housing: I Have Housing Concerned About Future Housing: No Difficulty Paying Gas/Electric Bills: No Difficulty Paying for Meds: No Currently Unemployed: No Education: High School Diploma/GED Difficulty w/ Childcare or Family Care: No Occupation/Education: retired Gender identity (if verbalized by the patient): Male Spiritual care concerns: No Exam Const: General: healthy appearing and alert Nutritional Appearance: well nourished and thin Orientation/consciousness: patient oriented x3 HENMT: Head: normal to inspection Eyes: Conjunctivae: conjunctivae normal Chest: Chest palpation & inspection: no tenderness Resp: Effort & Inspection: labored, no retractions, tachypneic and uses accessory muscles Auscultation: wheezes Other: asymmetric inspiratory wheezing on the right; prolonged expiratory phase Cardio: Rate: bradycardic Rhythm: regular rhythm GI: Inspection: non-distended Skin: General skin exam: normal color, no jaundice and no pallor Extrem: General: no clubbing, cyanosis or edema Course Vital Signs Vital signs: Vital Signs Temperature 36.8 C 05/02/23 09:20 Pulse Rate 109 H 05/02/23 09:20 Respiratory Rate 14 05/02/23 09:20 Blood Pressure 137/72 05/02/23 09:20 Pulse Oximetry 90 05/02/23 09:20 Oxygen Delivery Nasal Cannula 05/02/23 09:20 Oxygen Flow Rate 2 05/02/23 09:20 Temperature 36.8 C 05/02/23 09:20 Pulse Rate 109 H 05/02/23 09:20 Respiratory Rate 14 05/02/23 09:20 Blood Pressure 137/72 05/02/23 09:20 Pulse Oximetry 92
[2023-05-02 09:54] LABS: Basophils Absolute Auto 0.07 K/mm3 (0.00-0.10); Basophils Percent Auto 0.7 % (0.0-1.0); Eosinophils Absolute Auto 0.05 K/mm3 (0.02-0.50); Eosinophils Percent Auto 0.5 % (1.0-6.0); Hematocrit 42.1 % (40.0-54.0); Immature Granulocyte Absolute 0.07 K/mm3 (0.00-0.00); Immature Granulocyte Percent A 0.7 % (0.0-0.0); Immature Platelet Fraction Pct 3.4 % (1.0-7.0); Mean Corpuscular HGB Conc 33.3 g/dL (32.0-36.0); Mean Corpuscular Hemoglobin 29.5 pg (27.0-31.0); Mean Corpuscular Volume 88.8 fL (78.0-102.0); Mean Platelet Volume 9.9 fl (8.7-11.0); Monocytes Absolute Auto 1.08 K/mm3 (0.10-0.90); Monocytes Percent Auto 10.2 % (2.0-11.0); Neutrophils Absolute Auto 7.5 K/mm3 (1.7-7.2); Neutrophils Percent Auto 70.9 % (50.0-70.0); Platelet Count Result 136 K/mm3 (150-420); Red Blood Count 4.74 M/mm3 (4.70-6.10); Red Cell Distribution Width 13.8 % (11.6-14.4); White Blood Count 10.6 K/mm3 (4.8-10.8)
[2023-05-02] MEDS: IPRATROPIUM 0.5 MG/ALBUTEROL SULFATE 2.5 MG AMPUL.NEB 3 ML INHALATION (10:07)
[2023-05-02 10:14] LABS: Alanine Aminotransferase 7 U/L (16-63); Alkaline Phosphatase 72 U/L (46-116); Anion Gap 11 mmol/L (8-16); Aspartate Amino Transferase 13 U/L (15-37); Bilirubin,Total 1.2 mg/dL (0.00-1.00); Blood Urea Nitrogen 7 mg/dL (7-18); Calcium 8.4 mg/dL (8.5-10.1); Carbon Dioxide 25 mmol/L (21-32); Chloride 95 mmol/L (98-108); Estimated CRCL calculation 62 ml/min; Estimated Glomerular Filt Rate > 60; Glucose 111 mg/dL (70-99); Osmolality Calculated 271 mOsm/kg (285-295); Potassium 3.8 mmol/L (3.5-5.1); Sodium 131 mmol/L (136-145); Total Protein 7.7 g/dL (6.4-8.2)
[2023-05-02 10:28] LABS: SARS-CoV-2 RNA PCR Negative (Negative)
[2023-05-02 10:29] LABS: Influenza A QL RT-PCR Negative (Negative); Influenza B QL RT-PCR Negative (Negative); RSV RNA, RT-PCR Negative (Negative)
[2023-05-02] MEDS: cefTRIAXone 2 GM/NS 100 ML 2 GM/100 ML BAG IVPB (11:01)
[2023-05-02] MEDS: AZITHROMYCIN 250 MG TABLET 500 MG PO (11:02)
== END 2023-05-02 12:00 | disposition home or self-care (01) ==
PROVIDERS: Emergency Provider Emergency Medicine; PCP Physician Assistant
DX: J18.9 Pneumonia, unspecified organism (principal); J44.9 Chronic obstructive pulmonary disease, unspecified; Z79.899 Other long term (current) drug therapy; Z87.891 Personal history of nicotine dependence; Z20.822 Contact with and (suspected) exposure to COVID-19
CPT/HCPCS: 36415; 71275; 80053; 85025; 85055; 87637; 94640; 96365; 96375; 99284; A9270; J0696; J1100; Q9967

== ENCOUNTER 2024-09-24 18:53 | Emergency (ER) | payer BC, SELFPAY ==
[2024-09-24] VITALS (11 sets, daily range): BP systolic 129–156; BP diastolic 79–92; PULSE 57–74; RESP 12–24; TEMP 35.9–36.7; O2SAT 94–99
--- NOTE | ~2024-09-24 | CT_ITS ---
EXAMINATION: CTA chest PE protocol DATE: 09/24/2024 20:41 INDICATION: shortness of breath elevated D-dimer TECHNIQUE: Computed tomography angiography (CTA) of the chest was performed with 100 mL Omnipaque-350 intravenous contrast timed to evaluate the pulmonary arteries. Coronal maximum intensity projection 3D-reconstructions were created by the technologist. The dose-length product (DLP) was 232.35 mGy-cm. Automated exposure control and iterative reconstruction technique were employed. COMPARISON: X-ray chest, same date CTPA 05/02/2023. FINDINGS: Lung parenchyma and airways: Severe emphysematous change. Progressive scar formation in the right upp er lobe and right lower lobe and to a lesser extent in the left upper lobe. Thick-walled air cysts an d subsegmental consolidation within the area of scarring in the posterior right upper lobe. Patent ai rways. Pleura: Unremarkable. Thoracic inlet, axillae and chest wall: Unremarkable. Thoracic aorta: No significant dilation. No dissection. Mediastinum: Dilated central pulmonary arteries as can be seen with pulmonary hypertension. Heart and pericardium: Normal. Coronary artery calcifications: Mild. Upper abdomen: No significant finding. Bones: No acute osseous finding. Pulmonary arteries: Study quality: Adequate. No pulmonary emboli detected. IMPRESSION: Possible infection/superinfection within an area of increased scarring/bulla formation in the right u pper lobe. Other cavitary mass development is not excluded. Recommend short-term CT follow-up after a ppropriate therapy, to evaluate for progression or improvement. No acute pulmonary embolus detected. Reviewed, dictated and finalized at location K. IMPRESSION: Possible infection/superinfection within an area of increased scarring/bulla fo rmation in the right upper lobe. Other cavitary mass development is not exclude d. Recommend short-term CT follow-up after appropriate therapy, to evaluate for progression or improvement. No acute pulmonary embolus detected.
--- NOTE | ~2024-09-24 | XR_ITS ---
EXAMINATION: XR chest 1V portable Exam Date/Time: 09/24/2024 19:00 CDT HISTORY: dyspnea Comparison: 04/16/2023; CTPA 05/02/2023 and 04/16/2023. RESULT: Lines, tubes, and devices: None. Lungs and pleura: No focal consolidation, pleural effusion, or pneumothorax. Significant interval wo rsening of the right upper lobe scarring, with hilar retraction. Less pronounced left apical scarring . Emphysematous change. Cardiomediastinal silhouette: Stable. Other: No acute osseous or upper abdominal finding. IMPRESSION: No acute cardiopulmonary process. Considerable progression of right upper lobe scarring. Severe emphy sematous change. Reviewed, dictated and finalized at location K. IMPRESSION: No acute cardiopulmonary process. Considerable progression of right upper lobe scarring. Severe emphysematous change.
--- NOTE | 2024-09-24 18:58 | ECG_ITS ---
Test Date: 2024-09-24 19:11:58 Measurements Intervals [place] Rate: 64 P: 77 [place]: 179 QRS: 65 QRSD: 73 T: 74 QT: 361 QTc: 374 Interpretive Statements SINUS RHYTHM No previous ECG available for comparison Electronically Signed On 09-24-2024 22:09:14 CDT by Scarlet Rivera M.D.
--- OUTSIDE RECORDS SUMMARY | 2024-09-24 18:59 | XMS_ITS | Encounter Summary ---
Author Organization [facility] Address [address] [place] [address] Care Team Providers Care Experiential Therapist Name Role Phone Julio William MD Primary Care Provider Encounter Details Date Type Department Care Team ([facility] Contact Info) Description 08/26/2018 Abstract [facility]FL CONVERSION [address] [place] [address] , Generic Conversion, Social History Tobacco Use Types Packs/Day Years Used Date Smoking Tobacco: Never Assessed Sex and Gender Information Value Date Recorded Sex Assigned at Male 08/23/2024 3:33 PM CDT Legal Sex Male 7:06 PM CDT Gender Identity Not on file Sexual Orientation Not on file documented as of this encounter Plan of Treatment Not on file documented as of this encounter Visit Diagnoses Not on filedocumented in this encounter Additional Health Concerns Infection Onset Date Last Indicated Resolved Time COVID-19 Rule Out 11/17/2023 11/17/2023 11/17/2023 1:24 PM CDT COVID-19 Rule Out 03/11/2024 03/11/2024 03/11/2024 12:43 PM DIRECTOR OF SOLUTIONS ARCHITECTURE documented as of this encounter Care Teams Experiential Therapist Relationship Specialty Start Date End Date Julio William MD [address] [place] [id number] PCP - General FAMILY PRACTICE 02/25/23 documented as of this encounter
--- OUTSIDE RECORDS SUMMARY | 2024-09-24 18:59 | XMS_ITS | Clinical Summary ---
Author Organization [facility] Address [address] [place] [address] Care Team Providers Care Character Actress Name Role Phone Julio William MD Primary Care Provider Allergies No known active allergies Medications ipratropium-al buterol (DUONEB) 0.5-2.5 (3) MG/3ML Solution Take 1 mL by nebulization every 4 (four) hours as needed. Active albuterol sulfate HFA 108 (90 Base) MCG/ACT inhaler Inhale 2 puffs into the lungs every 6 (six) hours as needed for Wheezing. Active tiotropium (SPIRIVA) [address] 1 capsule (18 mcg total) into inhaler and inhale daily. 4 Active mometasone-for moterol (DULERA) 200-5 MCG/ACT Aerosol Inhale 1 puff into the lungs 2 (two) times daily. 13 g 4 Active methylPREDNISo GASTON hutchison, (MEDROL DOSEPAK) 4 MG tablet Take 1 tablet (4 mg total) by mouth see administration instructions. Follow package directions 1 each 4 Active Active Problems Problem Noted Date Diagnosed Date COPD exacerbation ([facility]) 11/17/2023 COPD (chronic obstructive pu lmonary disease) ([facility]) 03/10/2023 Inguinal hernia 12/05/2013 Resolved Problems Problem Noted Date Diagnosed Date Resolved Date Encounter for preventive health examination 06/05/2013 03/14/2023 Encounters Date Type Department Care Team Description 08/23/2024 3:07 PM CDT - 08/23/2024 5:35 PM CDT Emergency [facility] [address] [place] [address] Kinza Land MD Hemoptysis Discharge Disposition: Home or Self Care (Routine Discharge) 08/23/2024 Travel 08/21/2024 9:23 AM CDT - 08/21/2024 11:59 PM CDT Hospital Encounter [address] [place] [address] Micah Garcia MD Discharge Disposition: Home or Self Care (Routine Discharge) 08/21/2024 Travel 07/13/2024 8:55 AM CDT - 07/13/2024 11:59 PM CDT Hospital Encounter [address] [place] [address] Breanna Matias NP Discharge Disposition: Home or Self Care (Routine Discharge) 07/13/2024 Travel from Last 3 Months Immunizations Immunization Administration Dates Next Due Fluzone (IIV3, Trivalent, 0.5 ML Prefilled Syrin ge) 03/13/2024 Family History Relation Status Comments Father Mother Social History Tobacco Use Types Packs/Day Years Used Date Smoking Tobacco: Former Cigarettes Q uit: 11/2022 Smokeless Tobacco: Never Tobacco Cessation:Counseling Given: Not Answered Alcohol Use Standard Drinks/Week Comments Yes 0 (1 standard drink = 0.6 oz pur e alcohol) occasional [facility] Utilities Answer Date Recorded In the past 12 months has e [employer], oil, or water [employer] threatened to shut off services in your home? No 03/11/2024 Humiliation, Afraid, Rape, and Kick questionnair e Answer Date Recorded Within the last year, have y ou been afraid of your partner or ex-partner? No 03/11/2024 Within the last year, have y ou been humiliated or emotionally abused in other ways by your partner or ex-partner? No Within the last year, have y ou been kicked, hit, slapped, or otherwise physically hurt by your partner or ex-partner? No 03/11/2024 Within the last year, have y ou been raped or forced to have any kind of sexual activity by your partner or ex-partner? No 03/11/2024 Overall Financial Resource Strain (CARDIA) Answe r Date Recorded How hard is it for you to pa y for the very basics like food, housing, medical care, and heating? Very hard 03/11/2024 Hunger Vital Sign Answer Date Recorded Within the past 12 months, y ou worried that your food would run out before you got the money to buy more. Never true 03/11/20 24 Within the past 12 months, t he food you bought just didn't last and you didn't have money to get more. Never true 03/11/2024 PRAPARE - Transportation Answer Date Re corded In the past 12 months, has l ack of transportation kept you from medical appointments or from getting medications? No 02/19 In the past 12 months, has l ack of transportation kept you from meetings, work, or from getting things needed for daily living? No 03/11/2024 Housing Stability Vital Sign Answer Tank e Recorded In the last 12 months, was t here a time when you were not able to pay the mortgage or rent on time? No 03/11/2024 In the past 12 months, how m any times have you moved where you were living? 0 03/11/2024 At any time in the past 12 m [facility], were you homeless or living in a residential (including now)? No 03/11/2024 Sex and Gender Information Value Date Recorded Sex Assigned at Male 08/23/2024 3:33 PM CDT Legal Sex Male 7:06 PM CDT Gender Identity Not on file Sexual Orientation Not on file Last Filed Vital Signs Vital Sign Reading Time Taken Comments Blood Pressure 126/87 08/23/2024 5:30 PM CDT Pulse 73 08/23/2024 5:00 PM CDT Temperature 36.1 C (96.9 F) 08/23/2024 3:13 PM CDT Respiratory Rate 18 08/23/2024 5:00 PM CDT Oxygen Saturation 95% 08/23/2024 5:30 PM CDT on O2 1l/nc Inhaled Oxygen Concentration - - Weight 57.2 kg (126 lb) 08/23/2024 3:13 PM CDT Height 170.2 cm (5' 7) 08/23/2024 3:13 PM CDT Body Mass Index 19.73 08/23/2024 3:13 PM CDT Plan of Treatment Health Maintenance Due Date Last Done Comments Colorectal Cancer Screening Colonoscopy (10 Years) 1962 Annual Physical 1965 Hepatitis C 1980 DTaP, Tdap and Td Vaccines ( 1 - Tdap) 1981 Pneumococcal Vaccine: 50+ Ye ars (1 of 2 - PCV) 1981 Zoster Vaccines (1 of 2) 2012 RSV Immunization or 60+ Years (1 - Risk 60-74 years 1-dose series) 2022 COVID-19 Vaccine ( - 2023-2 5 season) 2023 PHQ-2 (Physician Rosebud) 03/21/2024 Meningococcal B Vaccine Aged Out No l onger eligible based on patient's age to complete this topic Meningococcal Vaccine Aged Out No sekou yamilka eligible based on patient's age to complete this topic RSV Immunizations Under 20 Months Aged Out No longer eligible based on patient's age to complete this topic Interventions Community Resource Recommendations Community Resource Services Recommended Domains Addressed Status Status Reason/Outcome Date/[facility] Assistance Financial Resource Strain 03/12/2024 3:28 PM 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 Medical Devices Implanted Type Area Shooter Helper Device Identifier Shelf Expiration Date Model / Serial / Lot Mesh Bard Plug Medium [id number] - [id number] Implanted:Qty: 1 on 03/31/2023 by Arnaldo Riley MD at [facility] Mesh Left: Inguinal [employer] [id number] 03/17/2025 [id number] / / [id number] Procedures Procedure Name Priority Date/Time Associated Diagnosis Comments PARTIAL THROMBOPLASTIN TIME,PTT STAT 08/23/2024 4:32 PM CDT PROTHROMBIN TIME, VENOUS STAT 08/23/2024 4:32 PM CDT BASIC METABOLIC PANEL STAT 08/23/2024 4:32 PM CDT CBC W/DIFF AUTOMATED STAT 08/23/2024 4:32 PM CDT CTA CHEST STAT 08/23/2024 4:[address] CHEST HIGH RESOLUTION WO CON STAT 08/21/2024 9:31 AM CDT Lung nodule CT LUNG SCREENING Routine 07/13/2024 9:0 6 AM CDT Cigarette smoker from Last 3 Months Results * PARTIAL THROMBOPLASTIN TIME,PTT (08/23/2024 4:32 PM CDT) PTT 31.2 25.1 - 36.5 SEC 08/23/2024 4:59 PM CDT [facility] 08/23/2024 4:32 PM CDT us Kinza Land MD LABORATORY Final Resul t Performing Organization Address City/[facility]/ZIP Co de Phone Number [facility] [address] [place] [address], [place] [phone] * PROTIME/INR, VENOUS (08/23/2024 4:32 PM CDT) PROTIME 10.8 9.4 - 12.5 SEC 08/23/2024 4:59 PM CDT [facility] INR 0.9 0.8 - 1.0 08/23/2024 4:59 PM CDT [facility] 08/23/2024 4:32 PM CDT us Kinza Land MD LABORATORY Final Resul t Performing Organization Address City/[facility]/ZIP Co de Phone Number [facility] [address] [place] [address], [place] [phone] * (ABNORMAL) BASIC METABOLIC PANEL (08/23/2024 4:32 PM CDT) SODIUM S/P/B 139 136 - 145 MMOL/L 08/23/2024 4:50 PM CDT [facility] POTASSIUM S/P/B 3.4(L) 3.5 - 5.1 MMOL/L 08/23/2024 4:50 PM T [facility] CHLORIDE S/P/B 103 98 - 107 MMOL/L 08/23/2024 4:50 PM T [facility] CO2 29.5 21.0 - 32.0 MMOL/L 08/23/2024 4:50 PM T [facility] GLUCOSE 84 70 - 99 MG/DL 08/23/2024 4:50 PM [facility] Comment: FASTING GLUCOSE 100 TO 125 MG/DL IS CONSISTENT WITH IMPAIRED FASTING GLUCOSE. FASTING GLUCOSE >125 MG/DL IS CONSISTENT WITH DIABETES. RANDOM GLUCOSE >200 MG/DL WITH HYPERGLYCEMIC SYMPTOMS IS CONSISTENT WITH DIABETES. PER ADA GUIDELINES BUN 10 6 - 24 MG/DL 08/23/2024 4:50 PM [facility] CREATININE S/P/B 0.96 0.70 - 1.30 MG/DL 08/23/2024 4:50 PM [facility] CALCIUM S/P/B 8.3(L) 8.4 - 10.5 MG/DL 08/23/2024 4:50 PM [facility] ANION GAP 6.5 5.0 - 15.0 MMOL/L 08/23/2024 4:50 PM [facility] OSMOLALITY (CALC) 286 MOSM/KG 025 4:50 PM [facility] Comment:REFERENCE RANGE NOT ESTABLISHED GFR ESTIMATE 90 >89 ML/MIN/1. 73 M2 08/23/2024 4:50 PM [facility] GFR NOTES GFR REFERENCE S: 08/23/2024 4:50 PM [facility] Comment: THE ESTIMATED GFR IS CALCULATED USING THE 2020 CKD-EPI EQUATION. THE FOLLOWING CATEGORIES FOR GRADING RENAL FUNCTION ARE RECOMMENDED BY THE INTERNATIONAL SOCIETY OF NEPHROLOGY (KDIGO 2012 CLINICAL PRACTICE GUIDELINE). G1,NORMAL OR HIGH: >89 ml/min/1.73 m2 G2,MILDLY DECREASED: 60-89 ml/min/1.73 m2 G3A,MILDLY TO MODERATELY DECREASED: 45-59 ml/min/1.73 m2 G3B,MODERATELY TO SEVERELY DECREASED: 30-44 ml/min/1.73 m2 G4,SEVERELY DECREASED: 15-29 ml/min/1.73 m2 G5,KIDNEY FAILURE: <15 ml/min/1.73 m2 08/23/2024 4:32 PM CDT us Kinza Land MD LABORATORY Final Resul t [facility] [address] [employer] [place] [address], * (ABNORMAL) CBC W/DIFF AUTOMATED (08/23/2024 4:32 PM CDT) WBC 8.03 4.00 - 10.80 x10'3/uL 08/23/2024 4:39 PM CDT [facility] RBC 4.63 4.50 - 6.10 x10'6/uL 08/23/2024 4:39 PM CDT [facility] HGB 13.4 13.0 - 18.0 G/DL 08/23/2024 4:39 PM CDT [facility] HCT 41.4 37.0 - 52.0 % 08/23/2024 4:39 PM CDT [facility] MCV 89.4 78.0 - 100.0 FL 08/23/2024 4:39 PM CDT [facility] MCH 28.9 27.0 - 31.0 PG 08/23/2024 4:39 PM CDT [facility] MCHC 32.4(L) 33.0 - 36.0 G/DL 08/23/2024 4:39 PM CDT [facility] RDW 13.9 11.5 - 14.5 % 08/23/2024 4:39 PM CDT [facility] PLT 177 150 - 350 x10'3/uL 08/23/2024 4:39 PM CDT [facility] MPV 9.6 7.4 - 10.4 FL 08/23/2024 4:39 PM CDT [facility] CBC COMMENT NORMAL REFERENCE RANGE NOT ESTABLISHED FOR THE PROPORTIONAL LEUKOCYTE DIFFERENTIAL. 08/23/2024 4:39 PM CDT [facility] NEUTROPHILS % 51.8 % 08/23/2024 4:39 PM CDT [facility] LYMPHOCYTES % 37.2 % 08/23/2024 4:39 PM CDT [facility] MONOCYTES % 8.8 % 08/23/2024 4:39 PM CDT [facility] EOSINOPHILS % 1.2 % 08/23/2024 4:39 PM CDT [facility] BASOPHILS % 0.9 % 08/23/2024 4:39 PM CDT [facility] IMMATURE GRANS % 0.1 % 08/24/19 4:39 PM CDT [facility] NRBC % 0.0 % 08/23/2024 4:39 PM CDT [facility] ABS. NEUTROPHILS 4.15 1.60 - 8.30 x10'3/uL 08/23/2024 4:39 PM CDT [facility] ABS. LYMPHOCYTES 2.99 0.80 - 4.70 x10'3/uL 08/23/2024 4:39 PM CDT [facility] ABS. MONOCYTES 0.71 0.00 - 1.50 x10'3/uL 08/23/2024 4:39 PM CDT [facility] ABS. EOSINOPHILS 0.10 0.00 - 0.40 x10'3/uL 08/23/2024 4:39 PM CDT [facility] ABS. BASOPHILS 0.07 0.00 - 0.20 x10'3/uL 08/23/2024 4:39 PM CDT [facility] ABS. IMMATURE GRANULOCYTES 0.01 0.00 - 0.03 x10'3/uL 08/23/2024 4:39 PM CDT [facility] ABS. NUCLEATED RBC'S 0.00 0.00 - 0.01 x10'3/uL 08/23/2024 4:39 PM CDT [facility] 08/23/2024 4:32 PM CDT us Kinza Land MD LABORATORY Final Resul t [facility] [address] [place] [address], * CTA CHEST (08/23/2024 4:20 PM CDT) Anatomical Region Laterality Modality Chest Computed Tomogra phy 08/23/2024 4:28 PM CDT Impressions 08/23/2024 4:42 PM CDT IMPRESSION: 1. There is no acute pulmonary embolism to the first subsegmental pulmonary artery level. 2. There is redemonstration of bilateral areas of lung parenchymal architectural distortion with associated areas of consolidation and volume loss. Please refer to recent high-resolution chest CT dated 08/21/2024 for additional details. 3. No lymphadenopathy is seen within the chest. 4. Severe upper lobe predominant emphysema. 5. No pneumothorax. Ordered By: KINZA LAND Interpreted By: Fidel Juárez MD, 08/23/2024 4:28 PM Narrative 08/23/2024 4:42 PM CDT [facility] [address] [place] [address] PROCEDURE: CTA CHEST. HISTORY: Evaluate for pulmonary embolism. Hemoptysis TECHNIQUE: Contrast enhanced helical CT pulmonary angiography was then performed (Isovue- 370 370, 44 mL). Routine transaxial and post-processed (sagittal and coronal MPR) reformations of the acquired data sets were obtained. Standard 3-D (MIP) reformations of the acquired data sets were also obtained. A dose lowering technique was used for this procedure, which may include, but is not limited to, dose reduction technique, automated exposure control, the use of iterative reconstruction, and ALARA (As Low As Reasonably Achievable) / Image Gently techniques. COMPARISON: CT high-resolution lung screening, 08/21/2024 PULMONARY CTA FINDINGS: This is a diagnostic quality helical CT pulmonary angiogram. There is no acute pulmonary embolism to the first subsegmental pulmonary artery level. OTHER FINDINGS: Support Devices: None. Heart/Pericardium/Great Vessels: Cardiac size is normal. There is mild calcific coronary artery atherosclerosis. There is no pericardial effusion. There is mild thoracic aortic and branch vessel atherosclerosis, portions calcific. The main pulmonary artery is normal in diameter. The mid ascending thoracic aorta measures up to 3.5 cm. Pleural Spaces: The pleural spaces are clear. Mediastinum/Donna: There is no mediastinal or hilar lymph node enlargement. Neck Base/Chest Wall/Diaphragm/Upper Abdomen: There is no supraclavicular or axillary lymph node enlargement. Limited imaging through the upper abdomen is within normal limits. Mild degenerative change is present in the spine. No aggressive osseous lesions are identified. Lungs/Central Airways: The trachea and central airways are clear normal in caliber. There is severe upper lobe predominant emphysema. There is redemonstration of bilateral areas of architectural distortion with associated volume loss, unchanged compared to prior CT dated 08/21/2024. There is bilateral central bronchial wall thickening Procedure Note Fidel Juárez MD - 08/23/2024 [place] [id number] [facility] [place] [address] PROCEDURE: CTA CHEST. HISTORY: Evaluate for pulmonary embolism. Hemoptysis TECHNIQUE: Contrast enhanced helical CT pulmonary angiography was thenperformed (Isovue-370 370, 44 mL). Routine transaxial and post-processed(sagittal and coronal MPR) reformations of the acquired data sets wereobtained. Standard 3-D (MIP) reformations of the acquired data sets werealso obtained. A dose lowering technique was used for this procedure, which may include,but is not limited to, dose reduction technique, automated exposurecontrol, the use of iterative reconstruction, and ALARA (As Low AsReasonably Achievable) / Image Gently techniques. COMPARISON: CT high-resolution lung screening, 08/21/2024 PULMONARY CTA FINDINGS: This is a diagnostic quality helical CT pulmonaryangiogram. There is no acute pulmonary embolism to the first subsegmentalpulmonary artery level. OTHER FINDINGS: Support Devices: None. Heart/Pericardium/Great Vessels: Cardiac size is normal. There is mild calcific coronary artery atherosclerosis. There is no pericardial effusion. There is mild thoracic aortic and branch vessel atherosclerosis,portions calcific. The main pulmonary artery is normal in diameter. The mid ascendingthoracic aorta measures up to 3.5 cm. Pleural Spaces: The pleural spaces are clear. Mediastinum/Donna: There is no mediastinal or hilar lymph nodeenlargement. Neck Base/Chest Wall/Diaphragm/Upper Abdomen: There is no supraclavicularor axillary lymph node enlargement. Limited imaging through the upperabdomen is within normal limits. Mild degenerative change is present in the spine. No aggressive osseouslesions are identified. Lungs/Central Airways: The trachea and central airways are clear normalin caliber. There is severe upper lobe predominant emphysema. There isredemonstration of bilateral areas of architectural distortion withassociated volume loss, unchanged compared to prior CT dated 08/21/2024.There is bilateral central bronchial wall thickening IMPRESSION: 1. There is no acute pulmonary embolism to the first subsegmentalpulmonary artery level. 2. There is redemonstration of bilateral areas of lung parenchymalarchitectural distortion with associated areas of consolidation and volumeloss. Please refer to recent high-resolution chest CT dated 08/21/2024 foradditional details. 3. No lymphadenopathy is seen within the chest. 4. Severe upper lobe predominant emphysema. 5. No pneumothorax. Ordered By: KINZA LAND Interpreted By: Fidel Juárez MD, 08/23/2024 4:28 PM us Kinza Land MD CT Final Resul t * CT CHEST HIGH RESOLUTION WO CON (08/21/2024 9:31 AM CDT) Anatomical Region Laterality Modality Chest Computed Tomogra phy 08/21/2024 10:0 5 AM CDT Impressions 08/21/2024 10:15 AM CDT IMPRESSION: 1. LUNG-RADS category 4X: Positive - Suspicious finding requiring clinical evaluation. Progressively enlarging consolidative groundglass opacity in the right upper lobe (lesion 1). Other nodular abnormalities in the left lung, new/increased (lesions 2 and 3). Differentials include mucinous adenocarcinoma, organizing pneumonia, or fungal/atypical mycobacterial infection. 2. LUNG-RADS category S: Coronary artery disease. 3. Other incidental findings as above. RECOMMENDATIONS: Patient scheduled for navigational bronchoscopy. Ordered By: MICAH GARCIA Interpreted By: Antwan Garza MD, 08/21/2024 10:05 AM Narrative 08/21/2024 10:15 AM CDT [address] [place] [address] EXAMINATION: CT Chest without contrast, HRCT, ION protocol DATE: 08/21/2024 9:29 AM CLINICAL HISTORY: Lung nodule. COMPARISON: Lung cancer screening on 07/13/2024 and 06/15/2023. TECHNIQUE: Computed tomography of the chest was obtained without administration of intravenous contrast according to routine protocol. A dose lowering technique was used for this procedure, which may include, but is not limited to, dose reduction technique, automated exposure control, the use of iterative reconstruction, and ALARA (As Low As Reasonably Achievable) / Image Gently techniques. FINDINGS: Lung Screening Specific (LUNG-RADS): Lesion 1: Slowly progressively increased consolidation and groundglass opacities in the right upper lobe, with extensive development increase anteriorly, best seen on image 96. Lesion 2: Focal discoid mixed solid and groundglass opacity has developed in the superior segment of left lower lobe on image 128, measuring 11 x 8 mm, appears slightly increased in size. Lesion 3: Irregular nodule in the left upper lobe on image 53, series 3, measuring 1.6 x 0.6 cm, unchanged Potentially Significant Incidentals (LUNG-RADS category S): Coronary artery disease. Pulmonary Incidentals: Severe emphysema Biapical scarring. Trace secretions in the trachea/ashleigh. Other Incidentals: Thick calcium on renal artery origins. Procedure Note Antwan Garza MD - 08/21/[address] [place] [address] EXAMINATION: CT Chest without contrast, HRCT, ION protocol DATE: 08/21/2024 9:29 AM CLINICAL HISTORY: Lung nodule. COMPARISON: Lung cancer screening on 07/13/2024 and 06/15/2023. TECHNIQUE: Computed tomography of the chest was obtained withoutadministration of intravenous contrast according to routine protocol. Adose lowering technique was used for this procedure, which may include,but is not limited to, dose reduction technique, automated exposurecontrol, the use of iterative reconstruction, and ALARA (As Low AsReasonably Achievable) / Image Gently techniques. FINDINGS: Lung Screening Specific (LUNG-RADS): Lesion 1: Slowly progressively increased consolidation and groundglassopacities in the right upper lobe, with extensive development increaseanteriorly, best seen on image 96. Lesion 2: Focal discoid mixed solid and groundglass opacity has developedin the superior segment of left lower lobe on image 128, measuring 11 x 8mm, appears slightly increased in size. Lesion 3: Irregular nodule in the left upper lobe on image 53, series 3,measuring 1.6 x 0.6 cm, unchanged Potentially Significant Incidentals (LUNG-RADS category S): Coronaryartery disease. Pulmonary Incidentals: Severe emphysema Biapical scarring. Tracesecretions in the trachea/ashleigh. Other Incidentals: Thick calcium on renal artery origins. IMPRESSION: 1. LUNG-RADS category 4X: Positive - Suspicious finding requiring clinicalevaluation. Progressively enlarging consolidative groundglass opacity inthe right upper lobe (lesion 1). Other nodular abnormalities in the leftlung, new/increased (lesions 2 and 3). Differentials include mucinousadenocarcinoma, organizing pneumonia, or fungal/atypical mycobacterialinfection. 2. LUNG-RADS category S: Coronary artery disease. 3. Other incidental findings as above. RECOMMENDATIONS: Patient scheduled for navigational bronchoscopy. Ordered By: MICAH GARCIA Interpreted By: Antwan Garza MD, 08/21/2024 10:05 AM us Micah Garcia MD CT Final Result * CT LUNG SCREENING (07/13/2024 9:06 AM CDT) Anatomical Region Laterality Modality Chest Computed Tomogra phy 07/19/2024 4:13 PM CDT Impressions 07/19/2024 4:30 PM CDT IMPRESSION: 1. LUNG-RADS category 4X: Positive - Suspicious finding requiring clinical evaluation. Progressively enlarging consolidative groundglass opacity in the right upper lobe (lesion 1). Other nodular abnormalities in the left lung, new. Differentials include mucinous adenocarcinoma, organizing pneumonia, or fungal/atypical mycobacterial infection. 2. LUNG-RADS category S: Coronary artery disease. 3. Other incidental findings as above. RECOMMENDATIONS: Pulmonary consultation advised to determine direction of further evaluation. May consider tissue correlation with either interventional radiology or [facility] pulmonology/navigational bronchoscopy. May consider repeat PET/CT. Thank you for choosing the [facility] Lung Screening Program. Ordered By: BREANNA MATIAS Interpreted By: Antwan Garza MD, 07/19/2024 4:13 PM Narrative 07/19/2024 4:30 PM [address] [place] [address] EXAM: LUNG SCREENING LOW-DOSE CT THORAX WITHOUT CONTRAST DATE: 02/25/2023 HISTORY: Asymptomatic patient meeting NCCN high-risk criteria for lung screening. Smoking history COMPARISON: 02/25/2023. CT chest on 06/15/2023. PET/CT on 07/01/2023. TECHNIQUE: Noncontrast, helical, low-dose CT (LDCT) chest per standard departmental protocol. Automated exposure control was utilized for dose reduction. FINDINGS: Lung Screening Specific (LUNG-RADS): Lesion 1: Slowly progressively increased consolidation and groundglass opacities in the right upper lobe, with extensive development increase anteriorly, best seen on image 134, series 3 and image 140, series 5. Lesion 2: Focal discoid mixed solid and groundglass opacity has developed in the superior segment of left lower lobe on image 124. Lesion 3: Irregular nodule in the left upper lobe on image 151, series 3, measuring 1.6 x 0.6 cm. Potentially Significant Incidentals (LUNG-RADS category S): Coronary artery disease. Pulmonary Incidentals: Severe emphysema Biapical scarring. Trace secretions in the trachea/ashleigh. Other Incidentals: Thick calcium on renal artery origins. Procedure Note Antwan Garza MD - 07/19/[address] [place] [address] EXAM: LUNG SCREENING LOW-DOSE CT THORAX WITHOUT CONTRAST DATE: 02/25/2023 HISTORY: Asymptomatic patient meeting NCCN high-risk criteria for lungscreening. Smoking history COMPARISON: 02/25/2023. CT chest on 06/15/2023. PET/CT on 07/01/2023. TECHNIQUE: Noncontrast, helical, low-dose CT (LDCT) chest per standarddepartmental protocol. Automated exposure control was utilized for dosereduction. FINDINGS: Lung Screening Specific (LUNG-RADS): Lesion 1: Slowly progressively increased consolidation and groundglassopacities in the right upper lobe, with extensive development increaseanteriorly, best seen on image 134, series 3 and image 140, series 5. Lesion 2: Focal discoid mixed solid and groundglass opacity has developedin the superior segment of left lower lobe on image 124. Lesion 3: Irregular nodule in the left upper lobe on image 151, series 3,measuring 1.6 x 0.6 cm. Potentially Significant Incidentals (LUNG-RADS category S): Coronaryartery disease. Pulmonary Incidentals: Severe emphysema Biapical scarring. Tracesecretions in the trachea/ashleigh. Other Incidentals: Thick calcium on renal artery origins. IMPRESSION: 1. LUNG-RADS category 4X: Positive - Suspicious finding requiring clinicalevaluation. Progressively enlarging consolidative groundglass opacity inthe right upper lobe (lesion 1). Other nodular abnormalities in the leftlung, new. Differentials include mucinous adenocarcinoma, organizingpneumonia, or fungal/atypical mycobacterial infection. 2. LUNG-RADS category S: Coronary artery disease. 3. Other incidental findings as above. RECOMMENDATIONS: Pulmonary consultation advised to determine direction offurther evaluation. May consider tissue correlation with eitherinterventional radiology or KOREY pulmonology/navigational bronchoscopy. Mayconsider repeat PET/CT. Thank you for [facility] the [facility]. Ordered By: BREANNA MATIAS Interpreted By: Antwan Garza MD, 07/19/2024 4:13 PM us Breanna Nitza Grothaus [employer] PROGRAM SPECIALIST CT Fin al Result from Last 3 Months Insurance MEDICAID Advance Directives * Full Code (Latest Code Status on File) Date Activated Date Inactivated Comments 03/11/2024 2:42 PM 03/13/2024 3:20 PM * Full Code Date Activated Date Inactivated Comments 11/17/2023 3:55 PM 11/18/2023 3:26 PM Care Teams Character Actress Relationship Specialty Start Date End Date Julio William MD [address] [place] [address] PCP - General FAMILY PRACTICE 02/25/23
--- NOTE | 2024-09-24 19:14 | PC.NURSE ---
covid swab sent to lab 19:12
[2024-09-24 19:19] LABS: Hematocrit 43.3 % (40.0-54.0); Hemoglobin 14.0 g/dL (14.0-18.0); Immature Granulocyte Percent A 0.2 % (0.0-0.0); Lymphocytes Absolute Auto 2.84 K/mm3 (1.10-4.50); Mean Corpuscular HGB Conc 32.3 g/dL (32-36); Mean Corpuscular Hemoglobin 29.0 pg (27.0-31.0); Mean Corpuscular Volume 89.6 fL (78.0-102.0); Nucleated Red Blood Cells Absolute Auto 0.00 K/mm3 (0.00-0.00); Nucleated Red Blood Cells Perc 0.0 % (0-0.0); Platelet Count Result 174 K/mm3 (150-420); Red Blood Count 4.83 M/mm3 (4.70-6.10); White Blood Count 5.3 K/mm3 (4.8-10.8)
--- OUTSIDE RECORDS SUMMARY | 2024-09-24 19:25 | XMS_ITS | Clinical Summary ---
Author Organization [facility] Address [address] [place] [address] Care Team Providers Care Video Game Animator Name Role Phone Julio William MD Primary [...] Problem Noted Date Diagnosed Date COPD exacerbation ([facility]) 11/17/2023 COPD (chronic obstructive pu lmonary disease) ([facility]) 03/10/2023 Inguinal hernia 12/05/2013 Resolved Problems Problem Noted Date Diagnosed Date Resolved Date Encounter for preventive health examination 06/05/2013 03/14/2023 Encounters Date Type Department Care Team Description 08/23/2024 3:07 PM CDT - 08/23/2024 5:35 PM CDT Emergency [facility] [address] [facility] [address] [place] [address] Kinza Land MD Hemoptysis Discharge Disposition: Home or Self Care (Routine Discharge) 08/23/2024 Travel 08/21/2024 9:23 AM CDT - 08/21/2024 11:59 PM CDT Hospital Encounter [address] [place] [address] Micah Garcia MD Discharge Disposition: Home or Self Care (Routine Discharge) 08/21/2024 Travel 07/13/2024 8:55 AM CDT - 07/13/2024 11:59 PM CDT Hospital Encounter [address] [place] [address] Breanna Matias NP Discharge Disposition: Home or [...] = 0.6 oz pur e alcohol) occasional [facility] Utilities Answer Date Recorded In the past 12 months has e [employer], oil, or water [employer] threatened to shut off services in your [...] any time in the past 12 m [facility], were you homeless or living in a intermediate (including now)? No 03/11/2024 Sex and Gender [...] - 2023-2 5 season) 2023 PHQ-2 (Physician [place]) 03/21/2024 Meningococcal B Vaccine Aged Out No [...] Recommended Domains Addressed Status Status Reason/Outcome Date/Time [facility] Financial Assistance Financial Resource Strain 03/12/2024 3:28 PM TRAFFIC II MANAGER from Last 12 Months Medical Devices Implanted Type Area Shuttle Filler Device Identifier Shelf Expiration Date Model / Serial / Lot Mesh Bard Plug Medium [id number] - [id number] Implanted:Qty: 1 on 03/31/2023 by Arnaldo Riley MD at [facility] Mesh Left: Inguinal [employer] [id number] 03/17/2025 [id number] / / [id number] Procedures Procedure Name Priority Date/Time Associated Diagnosis [...] - 36.5 SEC 08/23/2024 4:59 PM CDT [facility] 08/23/2024 4:32 PM CDT us Kinza Land MD LABORATORY Final Resul t Performing Organization Address City/[facility]/ZIP Co de Phone Number [facility] [address] [place] [address], [place] [phone] * PROTIME/INR, VENOUS (08/23/2024 4:32 PM CDT) PROTIME 10.8 9.4 - 12.5 SEC 08/23/2024 4:59 PM CDT [facility] INR 0.9 0.8 - 1.0 08/23/2024 4:59 PM CDT [facility] 08/23/2024 4:32 PM CDT us Kinza Land MD LABORATORY Final Resul t Performing Organization Address City/[facility]/ZIP Co de Phone Number [facility] [address] [place] [address], [place] [phone] * (ABNORMAL) BASIC METABOLIC PANEL (08/23/2024 4:32 PM CDT) SODIUM S/P/B 139 136 - 145 MMOL/L 08/23/2024 4:50 PM CDT [facility] POTASSIUM S/P/B 3.4(L) 3.5 - 5.1 MMOL/L 08/23/2024 4:50 PM T [facility] CHLORIDE S/P/B 103 98 - 107 MMOL/L 08/23/2024 4:50 PM T [facility] CO2 29.5 21.0 - 32.0 MMOL/L 08/23/2024 4:50 PM T [facility] GLUCOSE 84 70 - 99 MG/DL 08/23/2024 4:50 PM [facility] Comment: FASTING GLUCOSE 100 TO 125 MG/DL IS CONSISTENT WITH IMPAIRED FASTING GLUCOSE. FASTING GLUCOSE >125 MG/DL IS CONSISTENT WITH DIABETES. RANDOM GLUCOSE >200 MG/DL WITH HYPERGLYCEMIC SYMPTOMS IS CONSISTENT WITH DIABETES. PER ADA GUIDELINES BUN 10 6 - 24 MG/DL 08/23/2024 4:50 PM [facility] CREATININE S/P/B 0.96 0.70 - 1.30 MG/DL 08/23/2024 4:50 PM [facility] CALCIUM S/P/B 8.3(L) 8.4 - 10.5 MG/DL 08/23/2024 4:50 PM [facility] ANION GAP 6.5 5.0 - 15.0 MMOL/L 08/23/2024 4:50 PM [facility] OSMOLALITY (CALC) 286 MOSM/KG 025 4:50 PM [facility] Comment:REFERENCE RANGE NOT ESTABLISHED GFR ESTIMATE 90 >89 ML/MIN/1. 73 M2 08/23/2024 4:50 PM [facility] GFR NOTES GFR REFERENCE S: 08/23/2024 4:50 PM [facility] Comment: THE ESTIMATED GFR IS CALCULATED [...] Kinza Land MD LABORATORY Final Resul t [facility] [address] [place] [address], * (ABNORMAL) CBC W/DIFF AUTOMATED (08/23/2024 4:32 PM CDT) WBC 8.03 4.00 - 10.80 x10'3/uL 08/23/2024 4:39 PM CDT [facility] RBC 4.63 4.50 - 6.10 x10'6/uL 08/23/2024 4:39 PM CDT [facility] HGB 13.4 13.0 - 18.0 G/DL 08/23/2024 4:39 PM CDT [facility] HCT 41.4 37.0 - 52.0 % 08/23/2024 4:39 PM CDT [facility] MCV 89.4 78.0 - 100.0 FL 08/23/2024 4:39 PM CDT [facility] MCH 28.9 27.0 - 31.0 PG 08/23/2024 4:39 PM CDT [facility] MCHC 32.4(L) 33.0 - 36.0 G/DL 08/23/2024 4:39 PM CDT [facility] RDW 13.9 11.5 - 14.5 % 08/23/2024 4:39 PM CDT [facility] PLT 177 150 - 350 x10'3/uL 08/23/2024 4:39 PM CDT [facility] MPV 9.6 7.4 - 10.4 FL 08/23/2024 4:39 PM CDT [facility] CBC COMMENT NORMAL REFERENCE RANGE NOT ESTABLISHED FOR THE PROPORTIONAL LEUKOCYTE DIFFERENTIAL. 08/23/2024 4:39 PM CDT [facility] NEUTROPHILS % 51.8 % 08/23/2024 4:39 PM CDT [facility] LYMPHOCYTES % 37.2 % 08/23/2024 4:39 PM CDT [facility] MONOCYTES % 8.8 % 08/23/2024 4:39 PM CDT [facility] EOSINOPHILS % 1.2 % 08/23/2024 4:39 PM CDT [facility] BASOPHILS % 0.9 % 08/23/2024 4:39 PM CDT [facility] IMMATURE GRANS % 0.1 % 08/24/19 4:39 PM CDT [facility] NRBC % 0.0 % 08/23/2024 4:39 PM CDT [facility] ABS. NEUTROPHILS 4.15 1.60 - 8.30 x10'3/uL 08/23/2024 4:39 PM CDT [facility] ABS. LYMPHOCYTES 2.99 0.80 - 4.70 x10'3/uL 08/23/2024 4:39 PM CDT [facility] ABS. MONOCYTES 0.71 0.00 - 1.50 x10'3/uL 08/23/2024 4:39 PM CDT [facility] ABS. EOSINOPHILS 0.10 0.00 - 0.40 x10'3/uL 08/23/2024 4:39 PM CDT [facility] ABS. BASOPHILS 0.07 0.00 - 0.20 x10'3/uL 08/23/2024 4:39 PM CDT [facility] ABS. IMMATURE GRANULOCYTES 0.01 0.00 - 0.03 x10'3/uL 08/23/2024 4:39 PM CDT [facility] ABS. NUCLEATED RBC'S 0.00 0.00 - 0.01 x10'3/uL 08/23/2024 4:39 PM CDT [facility] 08/23/2024 4:32 PM CDT us Kinza Land MD LABORATORY Final Resul t [facility] [address] [place] [address], * CTA CHEST (08/23/2024 4:20 PM CDT) [...] 4:28 PM Narrative 08/23/2024 4:42 PM CDT [facility] [address] [place] [address] PROCEDURE: CTA CHEST. HISTORY: Evaluate for pulmonary [...] Procedure Note Fidel Juárez MD - 08/23/2024 [place] [id number] [facility] [place] [address] PROCEDURE: CTA CHEST. HISTORY: Evaluate for pulmonary [...] 10:05 AM Narrative 08/21/2024 10:15 AM CDT [address] [place] [address] EXAMINATION: CT Chest without contrast, HRCT, ION [...] Procedure Note Antwan Garza MD - 08/21/[address] [place] [address] EXAMINATION: CT Chest without contrast, HRCT, ION [...] repeat PET/CT. Thank you for choosing the [facility] Lung Screening Program. Ordered By: BREANNA MATIAS Interpreted By: Antwan Garza MD, 07/19/2024 4:13 PM Narrative 07/19/2024 4:30 PM CDT [address] [place] [address] EXAM: LUNG SCREENING LOW-DOSE CT THORAX WITHOUT [...] Procedure Note Antwan Garza MD - 07/19/[address] [place] [address] EXAM: LUNG SCREENING LOW-DOSE CT THORAX WITHOUT [...] repeat PET/CT. Thank you for choosing the [facility] ScreeningProgram. Ordered By: BREANNA MATIAS Interpreted By: Antwan Garza MD, 07/19/2024 4:13 PM us Breanna Nitza Grothaus CARDIOVASCULAR SONOGRAPHER CT Fin al Result from Last 3 Months Insurance MEDICAID Advance Directives * Full Code (Latest Code Status on File) Date Activated Date Inactivated Comments 03/11/2024 2:42 PM 03/13/2024 3:20 PM * Full Code Date Activated Date Inactivated Comments 11/17/2023 3:55 PM 11/18/2023 3:26 PM Care Teams Video Game Animator Relationship Specialty Start Date End Date Julio William MD [address] [place] [address] PCP - General FAMILY PRACTICE 02/25/23
--- OUTSIDE RECORDS SUMMARY | 2024-09-24 19:25 | XMS_ITS | Encounter Summary ---
Author Organization [facility] Address [address] [place] [address] Care Team Providers Care Combine Operator Name Role Phone Julio William MD Primary Care Provider Encounter Details Date Type Department Care Team ([facility] Contact Info) Description 08/26/2018 Abstract SFL CONVERSION [address] [place] [address] , Generic Conversion, Social History Tobacco Use [...] Rule Out 03/11/2024 03/11/2024 03/11/2024 12:43 PM MARSHMALLOW MACHINE OPERATOR documented as of this encounter Care Teams Combine Operator Relationship Specialty Start Date End Date Julio William MD [address] [place] [address] PCP - General FAMILY PRACTICE 02/25/23 documented as of this encounter
[2024-09-24 19:35] LABS: Alanine Aminotransferase 14 U/L (6-50); Albumin Level 3.8 g/dL (3.5-5.1); Alkaline Phosphatase 76 U/L (38-126); Anion Gap 2 mmol/L (4-12); Aspartate Amino Transferase 26 U/L (17-59); Bilirubin,Total 0.5 mg/dL (0.2-1.3); Blood Urea Nitrogen 11 mg/dL (9-20); Calcium 8.3 mg/dL (8.4-10.2); Carbon Dioxide 27 mmol/L (22-30); Chloride 108 mmol/L (98-107); Estimated CRCL calculation 73 ml/min; Estimated Glomerular Filt Rate > 60; Glucose 97 mg/dL (65-110); Magnesium 2.2 mg/dL (1.6-2.3); Osmolality Calculated 283 mOsm/kg (285-295); Potassium 3.9 mmol/L (3.4-5.0); Sodium 137 mmol/L (137-145); Total Protein 7.3 g/dL (6.3-8.2)
[2024-09-24 19:37] LABS: INR 0.9; Partial Thromboplastin Time 25.9 Sec (23.9-30.70); Prothrombin Time 10.0 Seconds (9.50-12.1)
[2024-09-24 19:46] LABS: NT Pro B Type Natriuretic Pept 65 pg/mL (19.9-100); Troponin I < 0.012 ng/mL (0.000-0.034)
[2024-09-24 19:54] LABS: Influenza A QL RT-PCR Negative (Negative); Influenza B QL RT-PCR Negative (Negative); RSV RNA, RT-PCR Negative (Negative); SARS-CoV-2 RNA PCR Negative (Negative)
[2024-09-24] MEDS: IPRATROPIUM 0.5 MG/ALBUTEROL SULFATE 2.5 MG AMPUL.NEB 3 ML INHALATION (20:05)
--- NOTE | 2024-09-24 20:29 | PC.NURSE ---
patient to CT scan via wheelchair per trade clerk.
--- NOTE | 2024-09-24 21:02 | ED_ITS ---
HPI - SOB/Dyspnea General Chief Complaint: Shortness of Breath/Dyspnea Stated Complaint: trouble breathing Time Seen by Provider: 09/24/24 18:58 Source: patient Mode of arrival: ambulatory Limitations: no limitations History of Present Illness HPI Narrative: this is a 64-year-old male with a history of COPD and recent lung biopsy approximately 1 month ago and bronchoscopy for lung mass that patient states was benign is a nonsmoker quit smoking approximately 2 years ago there is no chest pain no fever chills no abdominal pain no nausea vomiting. Patient's symptoms started approximately 4 days ago and worse today that is what brought him in. Patient is dependent on oxygen 1L. MD elicited complaint: shortness of breath Pertinent past history: COPD Onset (ago): day(s) Timing: constant Severity: moderate Known history of: COPD Related Data Home Medications ?Medication ?Instructions ?Recorded ?Confirmed ?Last Taken ?Type budesonide-formoterol HFA 160 2 inh inhalation BID 05/02/23 05/02/23 Unknown History mcg-4.5 mcg/actuation aerosol inhaler (Symbicort) loratadine 10 mg tablet (Allergy 10 mg PO DAILY 05/02/23 05/02/23 Unknown History Relief (loratadine)) Allergies Allergy/AdvReac Type Severity Reaction Status Date / Time No Known Allergies Allergy Verified 05/02/23 10:42 Review of Systems 2 Review of Systems: All systems reviewed & are unremarkable except as noted in HPI and below PMFSH Past Medical History Medical History Reducible left inguinal hernia ETOH abuse History of heavy alcohol use. Quit drinking in May of 2021 Smoker COPD (chronic obstructive pulmonary disease) Surgical History Surgical History History of shoulder surgery 2005 Family History Family History Father Lung cancer Sibling Lung cancer Social History Social History Smoking packs per day: 2.5 Smoking cigarettes per day: 50.0 Years smoked: 40 Smoking pack-years: 100.00 Smoking status: Former smoker Tobacco type: cigarettes Second hand tobacco smoke exposure: Yes Smoking end date: 07/21/23 Additional smoking assessment comments: smokes 2 cigs per week Alcohol intake: former Drinks per week: 2 Alcohol use details: quit drinking daily in may 2021, now more occasional Substance use: never Lack of Transportation: No Lack of Food: Never True Current Housing: I Have Housing Concerned About Future Housing: No Difficulty Paying Gas/Electric Bills: No Difficulty Paying for Meds: No Currently Unemployed: No Education: High School Diploma/GED Difficulty w/ Childcare or Family Care: No Occupation/Education: retired Gender identity (if verbalized by the patient): Male Spiritual care concerns: No Exam 2 Const: General: healthy appearing and no acute distress Nutritional Appearance: well nourished and thin Orientation/consciousness: patient oriented x3 Limitations: no limitations HENMT: Head: normal to inspection Eyes: Pupils: Equal, round and reactive pupils present Neck: Neck: normal visual inspection and no lymphadenopathy Chest: Chest palpation & inspection: normal inspection of the chest Resp: Effort & Inspection: normal respiratory effort Auscultation: d iminished lung sounds Cardio: Rate: regular rate Rhythm: regular rhythm GI: GI Palp: Yes Soft to palpation : General: Yes bladder normal to palpation Urinary Catheter: Urinary Catheter: patent and draining Skin: General skin exam: normal color Rashes: no rashes Course Course Emergency Course: Patient with shortness of breath has a history of COPD received breathing treatment and IV steroids after reassessment patient symptoms have improved he is on 1L of oxygen and currently satting at 99% when the patient arrived he was at 95% he had elevated D-dimer, CTA performed showed no acute pulmonary embolism. Vital Signs Vital signs: Vital Signs Temperature 36.7 C 09/24/24 18:53 Pulse Rate 74 09/24/24 18:53 Respiratory Rate 24 H 09/24/24 18:53 Blood Pressure 131/82 09/24/24 18:53 Pulse Oximetry 95 09/24/24 18:53 Oxygen Delivery Nasal Cannula 09/24/24 18:53 Oxygen Flow Rate 1 09/24/24 18:53 Temperature 36.7 C 09/24/24 18:53 Pulse Rate 74 09/24/24 20:22 Respiratory Rate 20 09/24/24 20:22 Blood Pressure 129/83 09/24/24 20:01 Pulse Oximetry 99 09/24/24 20:22 Oxygen Delivery Nasal Cannula 09/24/24 20:01 Oxygen Flow Rate 1 09/24/24 20:01 MDM - SOB/Dyspnea Lab Data 09/24/24 19:15 09/24/24 19:15 Labs: Lab Results 09/24/24 Range/Units 19:15 WBC 5.3 (4.8-10.8) K/mm3 RBC 4.83 (4.70-6.10) M/mm3 Hgb 14.0 (14.0-18.0) g/dL Hct 43.3 (40.0-54.0) % MCV 89.6 (78.0-102.0) fL MCH 29.0 (27.0-31.0) pg MCHC 32.3 (32-36) g/dL RDW 14.7 H (11.6-14.4) % Plt Count 174 (150-420) K/mm3 MPV 9.7 (8.7-11.0) fl Immature Gran % (Auto) 0.2 H (0.0-0.0) % Neut % (Auto) 31.5 L (50.0-70.0) % Lymph % (Auto) 53.7 H (18.0-42.0) % Kaufman % (Auto) 9.1 (2.0-11.0) % Eos % (Auto) 3.6 (1.0-6.0) % Baso % (Auto) 1.9 H (0.0-1.0) % Lymph # (Auto) 2.84 (1.10-4.50) K/mm3 Kaufman # (Auto) 0.48 (0.10-0.90) K/mm3 Eos # (Auto) 0.19 (0.02-0.50) K/mm3 Baso # (Auto) 0.10 (0.00-0.10) K/mm3 Abs Immat Gran (auto) 0.01 H (0.00-0.00) K/mm3 Absolute Neuts (auto) 1.67 L (1.70-7.20) K/mm3 Absolute Nucleated RBC 0.00 (0.00-0.00) K/mm3 Nucleated RBC % 0.0 (0-0.0) % PT 10.0 (9.50-12.1) Seconds INR 0.9 APTT 25.9 (23.9-30.70) Sec D-Dimer 1.14 H (0.19-0.50) mg/L Sodium 137 (137-145) mmol/L Potassium 3.9 (3.4-5.0) mmol/L Chloride 108 H (98-107) mmol/L Carbon Dioxide 27 (22-30) mmol/L Anion Gap 2 L (4-12) mmol/L BUN 11 D (9-20) mg/dL Creatinine 0.74 (0.7-1.3) mg/dL Estim Creat Clear Calc 73 ml/min Estimated GFR > 60 (59 - ) Glucose 97 (65-110) mg/dL Calculated Osmolality 283 L (285-295) mOsm/kg Lactic Acid 0.7 (0.4-2.0) mmol/L Calcium 8.3 L (8.4-10.2) mg/dL Magnesium 2.2 (1.6-2.3) mg/dL Total Bilirubin 0.5 (0.2-1.3) mg/dL AST 26 (17-59) U/L ALT 14 (6-50) U/L Alkaline Phosphatase 76 (38-126) U/L Troponin I < 0.012 (0.000-0.034) ng/mL NT-Pro-B Natriuret Pep 65 (19.9-100) pg/mL Total Protein 7.3 (6.3-8.2) g/dL Albumin 3.8 (3.5-5.1) g/dL Influenza A (RT-PCR) Negative (Negative) Influenza B (RT-PCR) Negative (Negative) RSV (RT-PCR) Negative (Negative) SARS-CoV-2 RNA (RT-PCR) Negative (Negative) Critical Care Time Critical Care Time Critical Care Time: No Discharge Plan Discharge Clinical Impression: Acute upper respiratory infection, COPD (chronic obstructive pulmonary disease) Patient Disposition: Home Condition: Stable Instructions: Antibiotic Form, Upper Respiratory Infection (ED), Emphysema (ED) Additional Instructions: advised patient to take medication as prescribed and to follow with primary care physician within the next 3 to 5 days for further evaluation and treatment. Patient Language: Colombian Prescriptions: New levofloxacin 500 mg tablet 500 mg PO DAILY Qty: 7 0RF prednisone 20 mg tablet 20 mg PO DAILY 5 Days Qty: 5 0RF No Action albuterol sulfate [ProAir HFA] 90 mcg/actuation HFA aerosol inhaler 2 puff inhalation QID PRN (Reason: shortness of breath or wheezing) Qty: 6.7 2RF (DME) nebulizers Misc See Rx Instructions .Route Qty: 1 0RF Rx Instructions: As directed (DME) nebulizers Misc See Rx Instructions .Route Qty: 1 0RF Rx Instructions: As directed ipratropium-albuterol 0.5 mg-3 mg(2.5 mg base)/3 mL Solution For Nebulization 3 ml inhalation Q6HRT Qty: 90 0RF loratadine [Allergy Relief (loratadine)] 10 mg tablet 10 mg PO DAILY budesonide-formoterol [Symbicort] 160-4.5 mcg/actuation HFA aerosol inhaler 2 inh INHALATION BID azithromycin 250 mg tablet 250 mg PO DAILY 5 Days Qty: 5 0RF cefdinir 300 mg capsule 300 mg PO BID Qty: 10 0RF dexamethasone 4 mg tablet 4 mg PO BID Qty: 10 0RF Follow-up/Referrals: Samreen,BRANT Bardales [Primary Care Provider] - Time of Disposition: 21:08
--- NOTE | 2024-09-24 21:08 | PC.NURSE ---
patient visitor, Trinity now at bedside. patient awaiting results of imaging.
--- NOTE | 2024-09-24 21:09 | PC.NURSE ---
Dr. Wyman at bedside at this time to update patient on results and plan of care.
--- NOTE | 2024-09-27 15:22 | PC.NURSE ---
PRELIMINARY BLOOD CULTURE RESULTS X2: NO GROWTH DETECTED AT THIS TIME
--- NOTE | 2024-09-28 12:05 | PC.NURSE ---
PRELIMINARY BLOOD CULTURE REPORT; NO GROWTH IN 24 HOURS.
--- NOTE | 2024-09-29 12:15 | PC.NURSE ---
Preliminary Blood culture report x 2: No growth in 48 hrs.
--- NOTE | 2024-10-02 12:25 | PC.NURSE ---
Final blood culture report; no growth after 5 days.
--- NOTE | 2024-10-03 13:15 | PC.NURSE ---
final blood cultures x2 reviewed. no growth in 5 days. no change in plan of care
== END 2024-09-24 21:30 | disposition home or self-care (01) ==
PROVIDERS: Emergency Provider Emergency Medicine; PCP Physician Assistant
DX: J06.9 Acute upper respiratory infection, unspecified (principal); J44.9 Chronic obstructive pulmonary disease, unspecified; Z87.891 Personal history of nicotine dependence; Z20.822 Contact with and (suspected) exposure to COVID-19
CPT/HCPCS: 36415; 71045; 71275; 80053; 83605; 83735; 83880; 84484; 85025; 85380; 85610; 85730; 87040; 87637; 93005; 94640; 96374; 99284; A9270; J2919; Q9967